=== PATIENT | male | born 1955 | race Caucasian/White ===

== ENCOUNTER 2018-01-11 09:23 | Day surgery (SDC) | payer OTHER ==
[~2018-01-11] VITALS: Ht 172.7 cm; Wt 144.2 kg
[~2018-01-11 09:23] MED LIST: ALBU90OI6 INH; ALLO100 PO; ANDROGEL75 GM TOP; ANORO ELLIPTA1 EACH INH; ASCO1ER PO; ASPI81CH PO; ATOR10 PO; ATOR40TA; BENZ100A PO; BUME2 PO; BUPR150ER PO; BUSP10; BUSP15 PO; CALC.25 PO; CALPHO600 PO; CARB50 PO; CLOP75; CLOP75 PO; COLC.6 PO; CYCL10 PO; CYMBALTA PO; Calcitriol0.25 MCG PO; Cilostazol50 MG PO; DIPH50 PO; DULO60 PO; ERGO400 PO; ERGO50000 PO; FERROUS SULFATE PO; FLUO10; FLUO20 PO; FLUT44OIA; FOLI1 PO; FURO40; FURO40 PO; Flonase 0.05% N16 GM; GABA100 PO; GUAI120S1 PO; HYDACE7.5L PO; HYDR10 PO; INSDETPEN SC; INSULANPEN SC; IPRAOI; IRON150C PO; ISOD40ER; ISOMON20 PO; LIRA0.6P INJ; LISI5 PO; LOSA50; METF500C PO; METF850; METO100ER; METO2.5 PO; METO25ER PO; METO50ER PO; NITR.4SL SL; NORTHERA100 MG PO; Novolog100 UNIT/1 SC; PIOG15; POTCHL20ER; POTCHL20ER PO; PRED20 PO; Percocet 5-3251 EACH PO; RANI150 PO; Robaxin500 MG PO; SALM50IP; SIMV80 PO; SPIR25; SPIR25 PO; Spironolactone25 MG PO; Stool Softener100 MG PO; TEMA15 PO; TETR250 PO; TOUJEO SOL300 UNIT/1 SQ; UBID10 PO; VICODIN 5-3001 EACH PO; Ventolin5 MG/1 ML INH; WARF4 PO; WARF5; WARF6 PO; Zithromax250 MG PO
[2018-01-11] MEDS ORDERED: SIMV5 (10:28)
== END 2018-01-11 22:39 | disposition home or self-care (01) ==
LOC: ORSCMMR 09:23 → ORD 11:00 → ORSCMMR 11:00
PROVIDERS: Internal Medicine Gastroenterology
PROC: 0D758ZZ Dilation of Esophagus, Via Natural or Artificial Opening Endoscopic (ICD-10-PCS; principal; 2018-01-11 11:00)
PROC: 0DB58ZX Excision of Esophagus, Via Natural or Artificial Opening Endoscopic, Diagnostic (ICD-10-PCS; principal; 2018-01-11 11:00)
DX: K22.70 Barrett's esophagus without dysplasia (principal); R13.10 Dysphagia, unspecified; I10 Essential (primary) hypertension; I50.9 Heart failure, unspecified; E11.9 Type 2 diabetes mellitus without complications; G47.33 Obstructive sleep apnea (adult) (pediatric); J44.9 Chronic obstructive pulmonary disease, unspecified; Z87.891 Personal history of nicotine dependence; E66.01 Morbid (severe) obesity due to excess calories; Z68.42 Body mass index [BMI] 45.0-49.9, adult; Z79.01 Long term (current) use of anticoagulants; Z79.82 Long term (current) use of aspirin; Z79.4 Long term (current) use of insulin; Z79.899 Other long term (current) drug therapy
CPT/HCPCS: 82947; 88305; J7120

== ENCOUNTER 2019-02-08 06:24 | Inpatient (IN) | payer OTHER ==
[~2019-02-08] VITALS: Ht 172.7 cm; Wt 141.5 kg
[~2019-02-08 06:24] MED LIST changes: +SIMV5
[2019-02-08 07:03] LABS: BASOPHILS ABSOLUTE AUTO 0.05 K/mm3 (0.00-0.23); BASOPHILS PERCENT AUTO 1 % (0-2); EOSINOPHILS ABSOLUTE AUTO 0.64 K/mm3 (0.00-0.68); EOSINOPHILS PERCENT AUTO 7 % (0-6); Hematocrit 38.5 % (37.0-53.0); Hemoglobin 11.8 g/dL (13.5-17.5); IMMATURE GRAN ABSOLUTE AUTO 0.06 K/mm3 (0.00-0.10); IMMATURE GRAN PERCENT AUTO 1 % (0-1); LYMPHOCYTES ABSOLUTE AUTO 1.51 K/mm3 (0.84-5.20); LYMPHOCYTES PERCENT AUTO 16 % (21-46); MONOCYTES ABSOLUTE AUTO 0.92 K/mm3 (0.16-1.47); MONOCYTES PERCENT AUTO 10 % (4-13); Mean Corpuscular HGB 31.1 pg (26.0-34.0); Mean Corpuscular HGB Conc 30.6 g/dL (31.5-36.5); Mean Corpuscular Volume 101 fL (80-100); Mean Platelet Volume 10.2 fL (9.1-12.4); NEUTROPHILS PERCENT AUTO 66 % (41-73); Platelet Count 290 K/mm3 (150-400); RDW Coefficient Variation 13.6 % (11.7-14.2); RDW Standard Deviation 51.1 fL (35.1-46.3); White Blood Cell Count 9.28 K/mm3 (4.00-11.30)
[2019-02-08 07:10] LABS: International Normalized Ratio 1.56; Prothrombin Time Results 15.9 Sec (9.7-11.5)
[2019-02-08 07:13] LABS: Alanine Aminotransfer (ALT/SGP 10 U/L (12-78); Albumin/Globulin Ratio 0.7 (0.8-1.8); Alk Phos 120 U/L (50-136); Anion Gap 8 mmol/L (6-16); Aspartate Aminotrans (AST/SGOT 15 U/L (12-37); Bilirubin, Total 0.5 mg/dL (0.1-1.0); Blood Urea Nitrogen 32 mg/dL (8-24); Bun/Creatinine Ratio 12.1 (12.0-20.0); CO2, Blood 30 mmol/L (21-32); Calcium, Blood 8.6 mg/dL (8.5-10.1); Chloride, Blood 101 mmol/L (98-108); Creatinine, Blood 2.64 mg/dL (0.60-1.20); Ethanol (Alcohol), Blood, Med <3 mg/dL; Globulin, Blood 4.1 g/dL (2.2-4.0); Glomerular Filtration Rate 26 (60-); Glucose, Blood 212 mg/dL (70-99); Potassium, Blood 4.5 mmol/L (3.5-5.5); Sodium, Blood 139 mmol/L (136-145); Total Protein, Blood 7.1 g/dL (6.4-8.2)
[2019-02-08] MEDS ORDERED: QUET100 PO (08:29)
[2019-02-08] MEDS ORDERED: FLUT1DIS5 INH (08:29)
[2019-02-08] MEDS ORDERED: LAMO100 PO (08:29)
[2019-02-08] MEDS ORDERED: LACO50TA2 PO (08:29)
[2019-02-08] MEDS ORDERED: DOCU100 PO (08:30)
[2019-02-08] MEDS ORDERED: OMEPRAZOLE20 MG PO ×2 (08:30→09:29)
[2019-02-08] MEDS ORDERED: CODEINE-GUAIFE120 ML (08:30)
[2019-02-08] MEDS ORDERED: DONE10 PO (08:30)
[2019-02-08] MEDS ORDERED: Hydrocortiso453.6 G3 TP (08:31)
[2019-02-08] MEDS ORDERED: ALBU90OI61 INH (08:31)
[2019-02-08] MEDS ORDERED: LOSA50 PO (08:31)
[2019-02-08] MEDS ORDERED: OXYB5 PO (08:31)
[2019-02-08] MEDS ORDERED: TAMS.4ER PO (08:32)
[2019-02-08] MEDS ORDERED: Triamcinolone A15 G3 (08:32)
[2019-02-08] MEDS ORDERED: CYAN500 PO (08:33)
[2019-02-08] MEDS ORDERED: Cymbalta60 MG PO (09:29)
[2019-02-08] MEDS ORDERED: Synthroid50 MCG PO (09:30)
[2019-02-08] MEDS ORDERED: OLAN5 PO (09:30)
[2019-02-08] MEDS ORDERED: Lipitor20 MG PO (09:31)
[2019-02-08] MEDS ORDERED: MONT10T PO (09:31)
[2019-02-08] MEDS ORDERED: Multivitamin1 EAC2 PO (09:31)
[2019-02-08] MEDS ORDERED: DIPH50 PO (09:32)
[2019-02-08] MEDS ORDERED: GLIP10ER PO (09:32)
[2019-02-08] MEDS ORDERED: GABA300 PO ×2 (09:33→13:16)
[2019-02-08] MEDS ORDERED: INSULANPEN (13:10)
[2019-02-08] MEDS ORDERED: LIRA0.6P (13:10)
[2019-02-08] MEDS ORDERED: NOVOLOG FL100 UNIT/1 (13:11)
[2019-02-08] MEDS ORDERED: METO25ER PO (13:12)
[2019-02-08] MEDS ORDERED: WARF2 PO (13:14)
[2019-02-08] MEDS ORDERED: WARF4 PO (13:14)
[2019-02-08] MEDS ORDERED: IRON150C PO (13:15)
[2019-02-08] MEDS ORDERED: ASPI81CH PO (13:15)
[2019-02-08] MEDS ORDERED: Allopurinol100 MG PO (13:15)
[2019-02-08] MEDS ORDERED: FOLI1 PO (13:16)
[2019-02-08] MEDS ORDERED: Isosorbide Mono30 MG PO (13:17)
[2019-02-08] MEDS ORDERED: POTCHL10ER PO (14:04)
[2019-02-08] MEDS ORDERED: Mucus Relief400 MG PO (14:04)
[2019-02-08] MEDS ORDERED: Zantac150 MG PO (14:05)
[2019-02-08] MEDS ORDERED: SPIR25 PO (14:05)
[2019-02-08] MEDS ORDERED: Vitamin D2000 UNIT PO (14:06)
[2019-02-08] MEDS ORDERED: Zocor20 MG PO (14:08)
[2019-02-08] MEDS ORDERED: DULO60 PO (14:08)
[2019-02-08] MEDS ORDERED: BUME2 PO (14:09)
[2019-02-08] MEDS ORDERED: TRAZ50 PO (14:09)
[2019-02-08] MEDS ORDERED: Nitrostat0.4 MG SL (14:10)
[2019-02-08] MEDS ORDERED: UBID10 PO (14:11)
[2019-02-08] MEDS ORDERED: NAPR220 PO (14:11)
[2019-02-08] MEDS ORDERED: PANT40 PO (14:12)
[2019-02-08] MEDS ORDERED: Allergy Medicat25 MG PO (14:14)
[2019-02-08] MEDS ORDERED: GINKGO BILOBA30 MG PO (14:15)
--- NOTE | 2019-02-08 15:10 | NUR ---
PT LEFT FLOOR WITH RN TO GO TO THE OR FOR ANKLE FX REPAIR
--- NOTE | 2019-02-08 17:55 | NUR ---
SHIFT SUMMARY PT A&OX4, VSS, BACK TO ROOM AT 1730. S/P I&D CLOSED REDUCTION RLE, ELEVATED. DENIES PAIN AT THIS TIME. FRANCI PO, DENIES N&V. SISTER AT BEDSIDE. WCTM & TX PER EMAR UNTIL REPORT GIVEN TO ONCOMING JOSE LUIS RN.
[2019-02-08 22:00] LABS: Source, Urine Clean Catch
[2019-02-08 22:04] LABS: Bilirubin, Urine Neg (Neg); Blood, Urine 1+ (Neg); Glucose Qualitative, Urine 3+ (Neg); Ketones, Urine 1+ (Neg); Leukocyte Esterase, Urine 3+ (Neg); Nitrite, Urine Neg (Neg); Protein, Urine 2+ (Neg); Specific Gravity, Urine 1.015 (1.003-1.022); Urobilinogen, Urine NORM (Normal)
[2019-02-08 22:11] LABS: Appearance, Urine Hazy (Clear); Color, Urine Yellow (P-Yellow)
[2019-02-08 22:12] LABS: Bacteria Few /hpf; Red Blood Cells, Urine 0-2 /hpf (0-2); Squamous Epithelial Cells Not Seen /hpf (Few); White Blood Cells, Urine TNTC /hpf (0-5)
[2019-02-09 04:46] LABS: BASOPHILS ABSOLUTE AUTO 0.06 K/mm3 (0.00-0.23); BASOPHILS PERCENT AUTO 1 % (0-2); EOSINOPHILS ABSOLUTE AUTO 0.48 K/mm3 (0.00-0.68); EOSINOPHILS PERCENT AUTO 5 % (0-6); Hematocrit 34.6 % (37.0-53.0); IMMATURE GRAN ABSOLUTE AUTO 0.04 K/mm3 (0.00-0.10); IMMATURE GRAN PERCENT AUTO 0 % (0-1); LYMPHOCYTES ABSOLUTE AUTO 0.98 K/mm3 (0.84-5.20); LYMPHOCYTES PERCENT AUTO 10 % (21-46); MONOCYTES ABSOLUTE AUTO 1.03 K/mm3 (0.16-1.47); MONOCYTES PERCENT AUTO 11 % (4-13); Mean Corpuscular HGB 31.3 pg (26.0-34.0); Mean Corpuscular HGB Conc 31.8 g/dL (31.5-36.5); Mean Platelet Volume 10.3 fL (9.1-12.4); NEUTROPHILS ABSOLUTE AUTO 6.82 K/mm3 (1.96-9.15); NEUTROPHILS PERCENT AUTO 73 % (41-73); Platelet Count 252 K/mm3 (150-400); RDW Coefficient Variation 13.5 % (11.7-14.2); RDW Standard Deviation 48.5 fL (35.1-46.3); Red Blood Cell Count 3.52 M/mm3 (4.30-5.90); White Blood Cell Count 9.41 K/mm3 (4.00-11.30)
[2019-02-09 04:47] LABS: Mean Corpuscular Volume 98 fL (80-100)
[2019-02-09 05:02] LABS: International Normalized Ratio 1.22; Prothrombin Time Results 12.7 Sec (9.7-11.5)
[2019-02-09 05:13] LABS: Anion Gap 7 mmol/L (6-16); Blood Urea Nitrogen 30 mg/dL (8-24); Bun/Creatinine Ratio 11.6 (12.0-20.0); CO2, Blood 29 mmol/L (21-32); Calcium, Blood 8.4 mg/dL (8.5-10.1); Chloride, Blood 101 mmol/L (98-108); Creatinine, Blood 2.58 mg/dL (0.60-1.20); Glomerular Filtration Rate 27 (60-); Glucose, Blood 232 mg/dL (70-99); Potassium, Blood 4.4 mmol/L (3.5-5.5); Sodium, Blood 137 mmol/L (136-145); Vancomycin, Random 18.8 ug/mL
--- NOTE | 2019-02-09 05:46 | NUR ---
SHIFT SUMMARY: PT POD #1 OF I&D CLOSED REDUCTION TO RLE. SPLINT IN PLACE. EXTREMITY ELEVATED WITH ICE. CAP REFILL WNL. PT ABLE TO WIGGLE TOES. BASELINE NEUROPATHY IN BLE AND BUE. NON WB TO RLE. PT REPORTS HAVING ALL TEETH REMOVED 11 DAYS AGO AND C/O SOME GUM PAIN. GIVEN OXY PRN PER EMAR. USING URINAL TO VOID. SLEEPING MOST OF SHIFT. BIPAP IN PLACE.
--- NOTE | 2019-02-09 17:13 | NUR ---
SHIFT SUMMARY PT A&OX4, VSS, BIPAP & BIOX BEDSIDE. POD1 I&D CLOSED REDUCTION OPEN FX W/SHORT LEG SPLINT, LEG ELEVATED. PAIN MANAGED WITH 5 MG OXY. PHYSICAL THERAPY REP PT IS ABLE TO INDEP DANGLE BEDSIDE, NEEDS REMINDERS TO PAY ATTN TO FOOT, NWB. FRANCI PO, DENIES N&V. PLAN IS NPO MIDNIGHT FOR ANKLE REPAIR BY DR LOUISE ON SUNDAY. WCTM & TX PER EMAR UNTIL REPORT GIVEN TO ONCOMING JOSE LUIS RN.
--- NOTE | 2019-02-10 04:21 | NUR ---
SHIFT SUMMARY: PT POD #2 FOR I&D OF RIGHT ANKLE. SPLINT IN PLACE WITH LEG ELEVATED. CAP REFILL WNL. PT ABLE TO WIGGLE TOES. NON WB ON AFFECTED EXTREMITY. BASELINE NEUROPATHY TO BLE AND BUE. USING BIPAP T/O NIGHT. O2 SATS STABLE. PT HAS BEEN NPO SINCE MIDNIGHT FOR ADDITIONAL SURGERY LATER TODAY.
[2019-02-10 08:34] LABS: BASOPHILS ABSOLUTE AUTO 0.06 K/mm3 (0.00-0.23); BASOPHILS PERCENT AUTO 1 % (0-2); EOSINOPHILS ABSOLUTE AUTO 0.63 K/mm3 (0.00-0.68); EOSINOPHILS PERCENT AUTO 7 % (0-6); Hematocrit 33.6 % (37.0-53.0); Hemoglobin 10.3 g/dL (13.5-17.5); IMMATURE GRAN ABSOLUTE AUTO 0.08 K/mm3 (0.00-0.10); IMMATURE GRAN PERCENT AUTO 1 % (0-1); LYMPHOCYTES ABSOLUTE AUTO 1.16 K/mm3 (0.84-5.20); LYMPHOCYTES PERCENT AUTO 12 % (21-46); MONOCYTES ABSOLUTE AUTO 1.14 K/mm3 (0.16-1.47); MONOCYTES PERCENT AUTO 12 % (4-13); Mean Corpuscular HGB 30.9 pg (26.0-34.0); Mean Corpuscular HGB Conc 30.7 g/dL (31.5-36.5); Mean Platelet Volume 10.2 fL (9.1-12.4); NEUTROPHILS PERCENT AUTO 68 % (41-73); Platelet Count 236 K/mm3 (150-400); RDW Coefficient Variation 13.5 % (11.7-14.2); Red Blood Cell Count 3.33 M/mm3 (4.30-5.90); White Blood Cell Count 9.57 K/mm3 (4.00-11.30)
[2019-02-10 08:38] LABS: Mean Corpuscular Volume 101 fL (80-100)
[2019-02-10 08:49] LABS: International Normalized Ratio 1.17; Prothrombin Time Results 12.2 Sec (9.7-11.5)
[2019-02-10 08:58] LABS: Bun/Creatinine Ratio 13.2 (12.0-20.0); Calcium, Blood 8.7 mg/dL (8.5-10.1); Creatinine, Blood 2.66 mg/dL (0.60-1.20); Potassium, Blood 4.4 mmol/L (3.5-5.5)
[2019-02-10 09:15] LABS: Vancomycin, Trough 24.4 ug/mL (5.0-10.0)
--- NOTE | 2019-02-10 11:20 | NUR ---
PT TO DAY SURGERY VIA HOSPITAL BED.
--- NOTE | 2019-02-10 12:12 | NUR ---
History, Chart, Medications and Allergies reviewed before start of procedure. LUNGS SCATTERED WHEEZES, PT STATES HE HAS DEVELOPED COUGH SINCE HOSPITAL ADMIT. DR BEAL, ANESTHESIOLOGIST AWARE. PT VOIDED USING URINAL PRIOR TO GOING BACK TO OR.
--- NOTE | 2019-02-10 15:14 | NUR ---
POST-OP PT BACK TO ROOM FROM PACU; A&O X4 BUT DROWSY; DENIES PAIN; RLE ELEVATED; SISTER AT BESIDE, AND HOSPITALIST TO ROOM.
--- NOTE | 2019-02-10 18:17 | NUR ---
SHIFT SUMMARY A/O X4, ORIF OF R ANKLE TODAY, DRESSING AND LE WOUNDS ARE C/D/I. NUMBNESS IN BLE R/T DIABETIC NEUROPATHY, DENIES PAIN. 2 PERSON MAX ASSIT WITH REPOSITIONING. 2L NC POST OP. EATING, DRINKING, AND VOIDING.
[2019-02-10 20:06] LABS: Vancomycin, Random 21.5 ug/mL
--- NOTE | 2019-02-11 02:43 | NUR ---
PLACED ON BIPAP WITH BLEED IN O2 AT 2L. PER BIOX O2 SAT IS 90%, TOLERATING WELL. WILL CONTINUE TO MONITOR.
[2019-02-11 05:10] LABS: International Normalized Ratio 1.19; Prothrombin Time Results 12.4 Sec (9.7-11.5)
[2019-02-11 05:17] LABS: Vancomycin, Random 17.8 ug/mL
--- NOTE | 2019-02-11 06:24 | NUR ---
LYING IN SEMI FOWLERS WITH EYES OPEN. REMOVED HIMSELF FROM BIPAP AND TOOK 0600 MEDS WITHOUT ISSUE. DENIES FURTHER NEEDS AT THIS TIME. SAFETY MEASURES IN PLACE. WILL GIVE HAND OFF TO ONCOMING SHIFT USING SBAR.
[2019-02-11 12:35] LABS: Hematocrit 32.4 % (37.0-53.0)
--- NOTE | 2019-02-11 16:21 | NUR ---
DISCHARGE PT HAS DONE WELL TODAY. UP IN CHAIR, WORKED WITH THERAPY. TX TO SNF TODAY. REPORT CALLED TO JUAN.
== END 2019-02-11 16:58 | DRG 493 ==
LOC: ER 06:24 → SURS 08:20
PROVIDERS: Emergency Medicine; Podiatrist Foot & Ankle Surgery; ADMIT Hospitalist
PROC: 0SBF0ZZ Excision of Right Ankle Joint, Open Approach (ICD-10-PCS; 2019-02-08)
PROC: 0QSJXZZ Reposition Right Fibula, External Approach (ICD-10-PCS; 2019-02-08)
PROC: 0QSJ04Z Reposition Right Fibula with Internal Fixation Device, Open Approach (ICD-10-PCS; principal; 2019-02-10 12:00)
DX: S82.91 Unspecified fracture of right lower leg (principal); D68.59 Other primary thrombophilia; I50.22 Chronic systolic (congestive) heart failure; N18.4 Chronic kidney disease, stage 4 (severe); E11.40 Type 2 diabetes mellitus with diabetic neuropathy, unspecified; I48.91 Unspecified atrial fibrillation; F32.9 Major depressive disorder, single episode, unspecified; B37.9 Candidiasis, unspecified; Z79.4 Long term (current) use of insulin; W18.30XA Fall on same level, unspecified, initial encounter; F41.9 Anxiety disorder, unspecified; K21.9 Gastro-esophageal reflux disease without esophagitis; Z91.81 History of falling; Z95.810 Presence of automatic (implantable) cardiac defibrillator; Z87.891 Personal history of nicotine dependence
CPT/HCPCS: 12004; 27840; 36415; 73560-RT; 73590; 73600; 80048; 80053; 80202; 81001; 82947; 85014; 85018; 85025; 85610; 85730; 86850; 86900; 86901; 87077; 87086; 87186; 93005; 93010; 94762; 96365-59; 96367-59; 96375-59; 97110; 97162; 97166; 97530; 99285-25; C1713; G0480; J0690; J1650; J2250; J2370; J2405; J2704; J2765; J3010; J3370; J3430; J3480; J7050; J7120; Q0163

== ENCOUNTER 2019-02-14 21:14 | Inpatient (IN) | payer OTHER ==
[~2019-02-14] VITALS: Ht 172.7 cm; Wt 145.0 kg
[~2019-02-14 21:14] MED LIST changes: +ALBU90OI61 INH; +Allergy Medicat25 MG PO; +Allopurinol100 MG PO; +CODEINE-GUAIFE120 ML; +CYAN500 PO; +Cymbalta60 MG PO; +DOCU100 PO; +DONE10 PO; +FLUT1DIS5 INH; +GABA300 PO; +GINKGO BILOBA30 MG PO; +GLIP10ER PO; +Hydrocortiso453.6 G3 TP; +INSULANPEN; +Isosorbide Mono30 MG PO; +LACO50TA2 PO; +LAMO100 PO; +LIRA0.6P; +LOSA50 PO; +Lipitor20 MG PO; +MONT10T PO; +Mucus Relief400 MG PO; +Multivitamin1 EAC2 PO; +NAPR220 PO; +NOVOLOG FL100 UNIT/1; +Nitrostat0.4 MG SL; +OLAN5 PO; +OMEPRAZOLE20 MG PO; +OXYB5 PO; +PANT40 PO; +POTCHL10ER PO; +QUET100 PO; +Synthroid50 MCG PO; +TAMS.4ER PO; +TRAZ50 PO; +Triamcinolone A15 G3; +Vitamin D2000 UNIT PO; +WARF2 PO; +Zantac150 MG PO; +Zocor20 MG PO
[2019-02-14] MEDS ORDERED: EZFE 200200 MG (21:37)
[2019-02-14] MEDS ORDERED: Protonix40 MG PO (21:38)
[2019-02-14 22:29] LABS: BASOPHILS ABSOLUTE AUTO 0.04 K/mm3 (0.00-0.23); BASOPHILS PERCENT AUTO 1 % (0-2); EOSINOPHILS ABSOLUTE AUTO 0.65 K/mm3 (0.00-0.68); EOSINOPHILS PERCENT AUTO 8 % (0-6); Hematocrit 30.7 % (37.0-53.0); Hemoglobin 9.7 g/dL (13.5-17.5); IMMATURE GRAN ABSOLUTE AUTO 0.05 K/mm3 (0.00-0.10); IMMATURE GRAN PERCENT AUTO 1 % (0-1); LYMPHOCYTES ABSOLUTE AUTO 1.09 K/mm3 (0.84-5.20); LYMPHOCYTES PERCENT AUTO 13 % (21-46); MONOCYTES PERCENT AUTO 10 % (4-13); Mean Corpuscular HGB 31.2 pg (26.0-34.0); Mean Corpuscular HGB Conc 31.6 g/dL (31.5-36.5); Mean Corpuscular Volume 99 fL (80-100); Mean Platelet Volume 9.5 fL (9.1-12.4); NEUTROPHILS ABSOLUTE AUTO 5.49 K/mm3 (1.96-9.15); NEUTROPHILS PERCENT AUTO 68 % (41-73); Platelet Count 300 K/mm3 (150-400); RDW Coefficient Variation 13.6 % (11.7-14.2); RDW Standard Deviation 48.2 fL (35.1-46.3); Red Blood Cell Count 3.11 M/mm3 (4.30-5.90); White Blood Cell Count 8.12 K/mm3 (4.00-11.30)
[2019-02-14 22:47] LABS: Albumin, Blood 2.6 g/dL (3.4-5.0); Albumin/Globulin Ratio 0.6 (0.8-1.8); Bilirubin, Total 0.5 mg/dL (0.1-1.0); Bun/Creatinine Ratio 15.2 (12.0-20.0); Calcium, Blood 8.7 mg/dL (8.5-10.1); Creatinine, Blood 2.57 mg/dL (0.60-1.20); Globulin, Blood 4.6 g/dL (2.2-4.0); Potassium, Blood 3.7 mmol/L (3.5-5.5); Total Protein, Blood 7.2 g/dL (6.4-8.2)
--- NOTE | 2019-02-15 00:30 | NUR ---
RECEIVED HAND OFF FROM ER NURSE USING SBAR. TRANSPORTED TO ROOM 221 VIA STRETCHER WITH FULL STAFF ASSISTANCE, TOLERATED WELL. AAO X3, M[place], FOLLOWS ALL COMMANDS. ORIENTED TO ROOM, CALL SYSTEM, AND POC, VOICES UNDERSTANDING. ADMISSION ASSESSMENT IN PROGRESS. SAFETY MEASURES IN PLACE. WILL CONTINUE TO MONITOR.
--- NOTE | 2019-02-15 02:30 | NUR ---
0230: ASSUMED CARE OF PT THAT IS RESTING IN BED QUIETLY WITH CALL LIGHT IN REACH. LLE PROPPED ON PILLOW WITH ICE PACK AND FOOT OF BED ELEVATED.
[2019-02-15 09:39] LABS: International Normalized Ratio 1.47
--- NOTE | 2019-02-15 11:17 | NUR ---
LOW BLOOD GLUCOSE POC TESTING SHOWED LOW BLOOD GLUCOSE OF 41 AT APPROXIMATELY 0721 THIS AM. PT REPORTED FEELING TIRED AND LIKE HIS BLOOD GLUCOSE WAS LOW BUT REMAINED ALERT AND ORIENTED. DR. JEAN PRESENT DURING THIS TIME, ORDERED D50 TO BE ADMINISTERED. D50 INCREASED BLOOD GLUCOSE TO 118. IV FLUID ORDER CHANGED IN ORDER TO HELP MAINTAIN BLOOD GLUCOSE.
--- NOTE | 2019-02-15 11:35 | NUR ---
PT TAKEN TO DAY SURGERY AT 0833.
--- NOTE | 2019-02-15 15:56 | NUR ---
VTACH PT HAD AN 8 BEAT RUN OF VTACH AND A 6 BEAT RUN OF VTACH. PT WAS ASYMPTOMATIC WITH BOTH AND VSS. HR OF 106, PT IN AFIB PER CAT DOG OR OTHER PET GROOMER. DR. JENA NOTIFIED.
--- NOTE | 2019-02-15 18:09 | NUR ---
VTACH PT CONTINUES TO HAVE SHORT EPISODES OF VTACH 6-8 BEATS. PT HAS BEEN ASYMPTOMATIC WITH MOST RECENT EPISODES. VSS. WILL MONITOR UNTIL TRANSFER TO PCU.
--- NOTE | 2019-02-15 18:29 | NUR ---
TRANSFER PT TRANSFERRED TO PCU AT 1830. PT ALERT AND ORIENTED AT TIME OF TRANFER. REPORT WAS GIVEN TO FAHAD EARLY.
[2019-02-16 04:35] LABS: BASOPHILS ABSOLUTE AUTO 0.01 K/mm3 (0.00-0.23); BASOPHILS PERCENT AUTO 0 % (0-2); EOSINOPHILS PERCENT AUTO 0 % (0-6); Hemoglobin 8.7 g/dL (13.5-17.5); IMMATURE GRAN ABSOLUTE AUTO 0.09 K/mm3 (0.00-0.10); IMMATURE GRAN PERCENT AUTO 1 % (0-1); LYMPHOCYTES PERCENT AUTO 5 % (21-46); MONOCYTES ABSOLUTE AUTO 0.72 K/mm3 (0.16-1.47); MONOCYTES PERCENT AUTO 7 % (4-13); Mean Corpuscular HGB 31.2 pg (26.0-34.0); Mean Corpuscular HGB Conc 31.1 g/dL (31.5-36.5); Mean Corpuscular Volume 100 fL (80-100); NEUTROPHILS PERCENT AUTO 87 % (41-73); Platelet Count 283 K/mm3 (150-400); RDW Coefficient Variation 13.5 % (11.7-14.2); Red Blood Cell Count 2.79 M/mm3 (4.30-5.90); White Blood Cell Count 10.52 K/mm3 (4.00-11.30)
--- NOTE | 2019-02-16 04:54 | NUR ---
POD 1 S/P ORIF R ANKLE. PT DID HAVE SEVERAL EPISOSES OF V-TACH; MAX RUN OF 7 BEATS; PT ASYMPTOMATIC. HR AFIB PER TELE MONITOR, PT DENIED CP/PRESSURE/SOB. O2 TITRATED DOWN TO 1LNC THIS AM, BIPAP ON WHILE SLEEPING. RLE ELEVATED, DRESSING CDI, CAP REFILL WNL, PT REP N/T AT BASELINE. PAIN MGD PER EMAR W/REP RELIEF. PT FRANCI REG PO, NO C/O N/V. IV S/L PER ORDERS. PT USING URINAL W/ASSISTANCE. PT REPOSITIONED FREQUENTLY T/O NIGHT, IS USING CALL LIGHT FOR ASSISTANCE, WILL CONT TO MONITOR UNTIL REP GIVEN TO ONCOMING RN.
[2019-02-16 04:58] LABS: Albumin, Blood 2.3 g/dL (3.4-5.0); Albumin/Globulin Ratio 0.5 (0.8-1.8); Bilirubin, Total 0.5 mg/dL (0.1-1.0); Bun/Creatinine Ratio 17.5 (12.0-20.0); Calcium, Blood 8.1 mg/dL (8.5-10.1); Creatinine, Blood 2.28 mg/dL (0.60-1.20); Globulin, Blood 4.4 g/dL (2.2-4.0); Potassium, Blood 4.2 mmol/L (3.5-5.5); Total Protein, Blood 6.7 g/dL (6.4-8.2)
[2019-02-16 05:03] LABS: Vancomycin, Trough 17.8 ug/mL (5.0-10.0)
[2019-02-16 05:05] LABS: Thyroid Stimulating Hormone 0.78 uIU/mL (0.360-4.800)
--- NOTE | 2019-02-16 12:08 | NUR ---
ECHOCARDIOGRAM COMPLETE
--- NOTE | 2019-02-16 18:12 | NUR ---
SHIFT SUMMARY PT ALERT AND ORIENTED. VS STABLE. O2 SATS >90% ON 2L NC. PT COMPLAINED OF PAIN TO RIGHT LEG THAT WAS RELIEVED WITH MEDICATION ADMINISTRATION. PT REPOSITIONED Q2H. PT ABLE TO WORK WITH PHYSICAL THERAPY TODAY. PT HAD SHORT RUN OF VTACH TWICE THIS SHIFT, BUT WAS ASYMPTOMATIC. WILL CONTINUE TO MONITOR AND REPORT TO ONCOMING RN. CALL LIGHT IN REACH.
[2019-02-16 20:18] LABS: International Normalized Ratio 1.41; Prothrombin Time Results 14.5 Sec (9.7-11.5)
--- NOTE | 2019-02-17 04:00 | NUR ---
ASSUMED CARE AT 1930 LAST NOC,.GOOD SPIRTS AND FAIRLY COMFORTABLE. ENC TO DO ADLS FOR SELF AND REPOSITION SELF . VERY LITTLE TO NO EFFORT. ENC TO T/C/ DB. AND INSTRUCTED ON I.S. POOR EFFORT BUT WILL CONT TO REMIND CONSTANTLY .RT LEG JACINTO WRAP DSG AND FIRM SPLINT BENEATH , DRY AND INTACT. CIRC CHECK WNL AT RT TOES AND ABLE TO MOVE TOES TO COMMAND. ALWAYS ELEVATED AND REPOSITIONED PER Q2-3HR SCHEDULE. AND HS SNACK TAKEN W/ INSULIN RE ESTABLISHED . GOOD APPETITE. FLUIDS ENC. PAIN RELIEF AND OFF TO SLEEP POST MEDS EVEN THOUGH HE COMPLAINED THAT HE COULD NOT LYE ON LT SIDE. SKIN CARE W/ CLEANSING AND UNGT AND POWDERS. SEEMS HE MAY BE SPILLING URINAL PARTIALLY. [facility]ENNA [facility].
[2019-02-17 04:22] LABS: BASOPHILS ABSOLUTE AUTO 0.03 K/mm3 (0.00-0.23); BASOPHILS PERCENT AUTO 0 % (0-2); EOSINOPHILS PERCENT AUTO 4 % (0-6); Hematocrit 26.3 % (37.0-53.0); Hemoglobin 8.2 g/dL (13.5-17.5); IMMATURE GRAN ABSOLUTE AUTO 0.13 K/mm3 (0.00-0.10); IMMATURE GRAN PERCENT AUTO 1 % (0-1); LYMPHOCYTES ABSOLUTE AUTO 1.12 K/mm3 (0.84-5.20); LYMPHOCYTES PERCENT AUTO 12 % (21-46); MONOCYTES ABSOLUTE AUTO 0.79 K/mm3 (0.16-1.47); MONOCYTES PERCENT AUTO 9 % (4-13); Mean Corpuscular HGB 31.7 pg (26.0-34.0); Mean Corpuscular HGB Conc 31.2 g/dL (31.5-36.5); Mean Corpuscular Volume 102 fL (80-100); Mean Platelet Volume 9.5 fL (9.1-12.4); NEUTROPHILS ABSOLUTE AUTO 6.64 K/mm3 (1.96-9.15); NEUTROPHILS PERCENT AUTO 73 % (41-73); Platelet Count 264 K/mm3 (150-400); RDW Standard Deviation 50.4 fL (35.1-46.3); Red Blood Cell Count 2.59 M/mm3 (4.30-5.90); White Blood Cell Count 9.11 K/mm3 (4.00-11.30)
[2019-02-17 04:38] LABS: International Normalized Ratio 1.37; Prothrombin Time Results 14.1 Sec (9.7-11.5)
[2019-02-17 04:44] LABS: Alanine Aminotransfer (ALT/SGP 13 U/L (12-78); Albumin, Blood 2.3 g/dL (3.4-5.0); Albumin/Globulin Ratio 0.6 (0.8-1.8); Alk Phos 82 U/L (50-136); Anion Gap 6 mmol/L (6-16); Aspartate Aminotrans (AST/SGOT 16 U/L (12-37); Bilirubin, Total 0.3 mg/dL (0.1-1.0); Blood Urea Nitrogen 46 mg/dL (8-24); Bun/Creatinine Ratio 19.7 (12.0-20.0); CO2, Blood 34 mmol/L (21-32); Chloride, Blood 94 mmol/L (98-108); Creatinine, Blood 2.33 mg/dL (0.60-1.20); Globulin, Blood 4.1 g/dL (2.2-4.0); Glomerular Filtration Rate 30 (60-); Glucose, Blood 183 mg/dL (70-99); Potassium, Blood 3.8 mmol/L (3.5-5.5); Sodium, Blood 134 mmol/L (136-145); Total Protein, Blood 6.4 g/dL (6.4-8.2)
--- NOTE | 2019-02-17 06:11 | NUR ---
SHIFT SUMMARY. NO ACUTE CHANGE FROM ABOVE. SLEPT WELL ALL NOC. NO V TACH SEEM THIS SHIFT. SOFT FOOD FO RHS SNACK AND NO REPORT OF MOUTH PAIN W/ THIS. PO MED FOR GENERAL PAIN/ W/ GOOD RESULTS.
[2019-02-17 09:33] LABS: Vancomycin, Random 22.1 ug/mL
--- NOTE | 2019-02-17 14:01 | NUR ---
02/17/19 1401 Lorene Truong VERIFICATIONS: EDIT CHART.
--- NOTE | 2019-02-17 19:36 | NUR ---
HE HAS RECEIVED OXYCODONE X1 TODAY FOR PAIN IN HIS R ANKLE. HE EATS AND DRINKS WELL. HE TRIED TO HAVE A BM ON THE BEDPAN AT END OF SHIFT BUT WAS UNSUCCESSFUL. HE STOOD WITH PT TODAY NWB ON RIGHT. UNABLE TO TAKE A STEP. FOR NURSING, HE REMAINS A LIFT TO GET OOB. HE HAS BEEN TURNED TODAY THROUGHOUT THE DAY. HE MOVES WELL IN BED. HE GETS HIS I.S. UPT TO 1750. CBG'S WARRANTED SOME SS INSULIN AT EACH MEAL.
[2019-02-18 05:02] LABS: BASOPHILS ABSOLUTE AUTO 0.04 K/mm3 (0.00-0.23); BASOPHILS PERCENT AUTO 0 % (0-2); EOSINOPHILS ABSOLUTE AUTO 0.68 K/mm3 (0.00-0.68); EOSINOPHILS PERCENT AUTO 6 % (0-6); Hemoglobin 8.4 g/dL (13.5-17.5); IMMATURE GRAN PERCENT AUTO 1 % (0-1); LYMPHOCYTES ABSOLUTE AUTO 1.25 K/mm3 (0.84-5.20); LYMPHOCYTES PERCENT AUTO 12 % (21-46); MONOCYTES ABSOLUTE AUTO 0.96 K/mm3 (0.16-1.47); MONOCYTES PERCENT AUTO 9 % (4-13); Mean Corpuscular HGB 31.2 pg (26.0-34.0); Mean Corpuscular HGB Conc 31.1 g/dL (31.5-36.5); Mean Corpuscular Volume 100 fL (80-100); Mean Platelet Volume 9.6 fL (9.1-12.4); NEUTROPHILS ABSOLUTE AUTO 7.74 K/mm3 (1.96-9.15); NEUTROPHILS PERCENT AUTO 72 % (41-73); Platelet Count 307 K/mm3 (150-400); RDW Coefficient Variation 14.5 % (11.7-14.2); RDW Standard Deviation 51.3 fL (35.1-46.3); Red Blood Cell Count 2.69 M/mm3 (4.30-5.90); White Blood Cell Count 10.77 K/mm3 (4.00-11.30)
--- NOTE | 2019-02-18 05:09 | NUR ---
SHIFT SUMMARY PT A&O X4, PLEASANT AND COOPERATIVE. PT LUNG SOUNDS DIM T/O. SPO2 > 90% ON 2L NC OR BIPAP. MONITOR SHOWS AFIB, HR 80-90'S. VSS. NO EVENTS OVER NIGHT. NO C/O PAIN THIS SHIFT. BLE ELEVATED W/ PILLOWS. R ANKLE WRAPPED. WILL CONTINUE TO MONITOR AND PROVIDE CARE UNTIL REPORT OFF TO DAY SHIFT RN.
[2019-02-18 05:17] LABS: International Normalized Ratio 1.48; Prothrombin Time Results 15.1 Sec (9.7-11.5)
[2019-02-18 05:27] LABS: Albumin, Blood 2.5 g/dL (3.4-5.0); Anion Gap 5 mmol/L (6-16); Blood Urea Nitrogen 51 mg/dL (8-24); Bun/Creatinine Ratio 20.6 (12.0-20.0); CO2, Blood 35 mmol/L (21-32); Calcium, Blood 8.8 mg/dL (8.5-10.1); Chloride, Blood 94 mmol/L (98-108); Creatinine, Blood 2.47 mg/dL (0.60-1.20); Glomerular Filtration Rate 28 (60-); Glucose, Blood 118 mg/dL (70-99); Potassium, Blood 3.8 mmol/L (3.5-5.5); Sodium, Blood 134 mmol/L (136-145); Vancomycin, Random 17.8 ug/mL
--- NOTE | 2019-02-18 07:30 | NUR ---
AM ASSESSMENT: Pt resting in bed. Repositioned with min assistance. LS diminished. HR irregular, tele shows afib in the 80's. BT positive. Pt morbid obese with large pannus. Multiple bruises and scabs over extrimeties. RLE with Large hard dressing and dyllan wrap over top. PT states that he is having 4/10 pain in his leg. Will medicate per orders. Pt states that he is really tired and that he has not slept much. Denies other needs. Call light in reach. Will monitor.
--- NOTE | 2019-02-18 09:50 | NUR ---
transfer to 218: Pt was transfered via recliner chair to room 218. Bedside report was given. Pt was a 2 person min assist to recliner chair with walker and gait belt. Pt NWB to R Leg and has some balance difficulties with this. Stable at time of transfer.
== END 2019-02-18 15:59 | DRG 493 ==
LOC: ER 21:14 → PCU 22:41 → SURS 22:41 → PCU 02-15 00:02 → SURS 02-15 00:27 → PCU 02-15 18:26 → SURS 02-18 09:48
PROVIDERS: Emergency Medicine; Family Medicine; Orthopaedic Surgery; ADMIT Internal Medicine
PROC: 0QSJ04Z Reposition Right Fibula with Internal Fixation Device, Open Approach (ICD-10-PCS; principal; 2019-02-15 09:45)
DX: T84.116A Breakdown (mechanical) of internal fixation device of bone of right lower leg, initial encounter (principal); N18.4 Chronic kidney disease, stage 4 (severe); I42.9 Cardiomyopathy, unspecified; I13.0 Hypertensive heart and chronic kidney disease with heart failure and stage 1 through stage 4 chronic kidney disease, or unspecified chronic kidney disease; I50.22 Chronic systolic (congestive) heart failure; Z68.43 Body mass index [BMI] 50.0-59.9, adult; M96.671 Fracture of tibia or fibula following insertion of orthopedic implant, joint prosthesis, or bone plate, right leg; W19.XXXA Unspecified fall, initial encounter; E11.22 Type 2 diabetes mellitus with diabetic chronic kidney disease; Z79.4 Long term (current) use of insulin; Z53.1 Procedure and treatment not carried out because of patient's decision for reasons of belief and group pressure; G47.33 Obstructive sleep apnea (adult) (pediatric); D63.1 Anemia in chronic kidney disease; I25.10 Atherosclerotic heart disease of native coronary artery without angina pectoris; Z95.810 Presence of automatic (implantable) cardiac defibrillator; Z95.5 Presence of coronary angioplasty implant and graft; I48.2 Chronic atrial fibrillation; Z79.82 Long term (current) use of aspirin; E66.01 Morbid (severe) obesity due to excess calories; M41.9 Scoliosis, unspecified; E11.59 Type 2 diabetes mellitus with other circulatory complications
CPT/HCPCS: 27788; 36415; 73600; 80053; 80069; 80202; 82947; 83880; 84443; 84484; 85025; 85610; 85730; 93005; 93010; 93306; 94640; 94660; 94762; 96365-59; 97110; 97161; 97166; 97530; 99285-25; C1713; J1100; J1650; J1956; J2370; J2405; J2704; J3010; J3370; J7030; J7120; Q0163

== ENCOUNTER 2019-03-03 15:31 | Inpatient (IN) | payer OTHER ==
[~2019-03-03] VITALS: Ht 172.7 cm; Wt 137.7 kg
[~2019-03-03 15:31] MED LIST changes: +Aspirin EC81 MG PO; +Chest Congesti400 MG PO; +Co Q-10100 MG PO; +EZFE 200200 MG; +Ferrous Sulfat325 M2 PO; -LIRA0.6P; +LIRA0.6P SC; -Mucus Relief400 MG PO; -NOVOLOG FL100 UNIT/1; +NOVOLOG FL100 UNIT/1 SC; +Protonix40 MG PO
[2019-03-03 16:33] LABS: International Normalized Ratio 1.66; Prothrombin Time Results 16.8 Sec (9.7-11.5)
[2019-03-03] MEDS ORDERED: OXYC5 PO (17:20)
[2019-03-03] MEDS ORDERED: DOCU100 PO (18:32)
[2019-03-03] MEDS ORDERED: METO5 PO (18:32)
[2019-03-03] MEDS ORDERED: Buspirone HCl7.5 MG PO (18:33)
[2019-03-04 05:15] LABS: International Normalized Ratio 1.63; Prothrombin Time Results 16.5 Sec (9.7-11.5)
[2019-03-04 05:29] LABS: Bun/Creatinine Ratio 18.5 (12.0-20.0); Calcium, Blood 9.2 mg/dL (8.5-10.1); Creatinine, Blood 2.05 mg/dL (0.60-1.20); Potassium, Blood 4.1 mmol/L (3.5-5.5)
--- NOTE | 2019-03-04 05:48 | NUR ---
SHIFT SUMMARY: PT ADMITTED FOR POSTOP INFECTION OF RECENT SURGERY TO RIGHT ANKLE. RIGHT ANKLE IS RED AND SWOLLEN WITH CRUSTY BLACK DRAINAGE TO INCICION SITE. INCISION CLOSED WITH SUTURES. PAIN MANAGED WITH 5MG OF OXY PER EMAR. PT REPORTS MINIMAL SENSATION TO BLE D/T NEUROPATHY. PT ALSO HAS NEUROPATHY TO BILAT HANDS AND IS UNABLE TO DO MOST ADL'S. PT NEEDS ASSISTANCE WITH URINAL; VOIDING WELL. BEDFAST AT THIS TIME. ABLE TO REPOSITION SELF IN BED. USING BIPAP T/O NIGHT.
--- NOTE | 2019-03-04 10:27 | NUR ---
new iv to left bicep. 20g started. 22 to right fa removed. dressing placed.
--- NOTE | 2019-03-04 14:18 | NUR ---
DR AVALOS TO ROOM FOR RESPLINTING, PLAN TO START PO ABX AND GET PT BACK TO SNF.
--- NOTE | 2019-03-04 17:48 | NUR ---
SHIFT SUMMARY ORTHO CONSULT COMPLETED, SPLINT SET BY . JACINTO WRAP C/D/I. STATES PAIN AT A TOLERABLE LEVEL T/O SHIFT. PLANS TO RETURN TO [facility] TOMORROW.
--- NOTE | 2019-03-05 00:26 | NUR ---
0022: PT REQUEST RN HELP WITH CPAP APPLICATION SO THAT HE MAY GO TO SLEEP. APPLIED TO PT SATISFACTION AND COMFORT AND LIGHTS TURNED OFF; CALL LIGHT IN REACH.
[2019-03-05 04:52] LABS: Albumin, Blood 2.4 g/dL (3.4-5.0); Anion Gap 8 mmol/L (6-16); Blood Urea Nitrogen 37 mg/dL (8-24); Bun/Creatinine Ratio 16.8 (12.0-20.0); CO2, Blood 31 mmol/L (21-32); Calcium, Blood 8.9 mg/dL (8.5-10.1); Chloride, Blood 101 mmol/L (98-108); Glomerular Filtration Rate 32 (60-); Glucose, Blood 148 mg/dL (70-99); Phosphorus, Blood 3.5 mg/dL (2.5-4.9); Potassium, Blood 4.3 mmol/L (3.5-5.5); Sodium, Blood 140 mmol/L (136-145)
[2019-03-05 04:54] LABS: BASOPHILS ABSOLUTE AUTO 0.03 K/mm3 (0.00-0.23); BASOPHILS PERCENT AUTO 0 % (0-2); EOSINOPHILS ABSOLUTE AUTO 0.85 K/mm3 (0.00-0.68); EOSINOPHILS PERCENT AUTO 12 % (0-6); Hematocrit 29.2 % (37.0-53.0); Hemoglobin 8.8 g/dL (13.5-17.5); IMMATURE GRAN ABSOLUTE AUTO 0.05 K/mm3 (0.00-0.10); IMMATURE GRAN PERCENT AUTO 1 % (0-1); LYMPHOCYTES ABSOLUTE AUTO 1.15 K/mm3 (0.84-5.20); LYMPHOCYTES PERCENT AUTO 16 % (21-46); MONOCYTES ABSOLUTE AUTO 0.84 K/mm3 (0.16-1.47); MONOCYTES PERCENT AUTO 11 % (4-13); Mean Corpuscular HGB 30.6 pg (26.0-34.0); Mean Corpuscular HGB Conc 30.1 g/dL (31.5-36.5); Mean Corpuscular Volume 101 fL (80-100); Mean Platelet Volume 9.1 fL (9.1-12.4); NEUTROPHILS ABSOLUTE AUTO 4.48 K/mm3 (1.96-9.15); NEUTROPHILS PERCENT AUTO 61 % (41-73); Platelet Count 461 K/mm3 (150-400); RDW Coefficient Variation 14.6 % (11.7-14.2); RDW Standard Deviation 53.9 fL (35.1-46.3); Red Blood Cell Count 2.88 M/mm3 (4.30-5.90)
[2019-03-05 05:07] LABS: International Normalized Ratio 1.7; Prothrombin Time Results 17.2 Sec (9.7-11.5)
--- NOTE | 2019-03-05 07:18 | NUR ---
SUMMARY: ADMIT DAY 3 RIGHT ANKLE SURGICAL SITE INFECTION BY HOSPITALIST AND DR. AVALOS. VSS, AFEBRILE, HS CBG GIVEN 2 UNITS COVERAGE. PAIN WELL CONTROLLED AND SEVERE NEUROPATHY TOLERABLE LEVEL. NO ACUTE CHANGES THIS SHIFT. ANTICIPATE RETURN TO [facility] LATER THIS DAY.
--- NOTE | 2019-03-05 16:11 | NUR ---
REPORT GIVEN TO SYD HERRERA RN. IV DC'D. PT DRESSED WITH ALL PERSONAL BELONGINGS WAITING FOR [facility] TRANSPORTATION.
== END 2019-03-05 16:30 | DRG 560 ==
LOC: ER 15:31 → SURS 18:08
PROVIDERS: Emergency Medicine; Internal Medicine; ADMIT Internal Medicine
DX: T84.59XA Infection and inflammatory reaction due to other internal joint prosthesis, initial encounter (principal); I50.22 Chronic systolic (congestive) heart failure; I42.9 Cardiomyopathy, unspecified; Z68.42 Body mass index [BMI] 45.0-49.9, adult; D68.9 Coagulation defect, unspecified; N18.4 Chronic kidney disease, stage 4 (severe); E11.40 Type 2 diabetes mellitus with diabetic neuropathy, unspecified; E66.01 Morbid (severe) obesity due to excess calories; I48.2 Chronic atrial fibrillation; Z79.4 Long term (current) use of insulin; G47.33 Obstructive sleep apnea (adult) (pediatric); Z79.01 Long term (current) use of anticoagulants; S82.843A Displaced bimalleolar fracture of unspecified lower leg, initial encounter for closed fracture; I25.10 Atherosclerotic heart disease of native coronary artery without angina pectoris; I48.91 Unspecified atrial fibrillation; Z87.891 Personal history of nicotine dependence; J44.9 Chronic obstructive pulmonary disease, unspecified; Z95.5 Presence of coronary angioplasty implant and graft; Z95.810 Presence of automatic (implantable) cardiac defibrillator; D63.1 Anemia in chronic kidney disease; E11.22 Type 2 diabetes mellitus with diabetic chronic kidney disease
CPT/HCPCS: 36415; 73610; 73700; 80048; 80069; 82947; 85025; 85610; 85651; 86140; 93922; 94640; 94660; 94762; 96365; 97162; 97530; 99284-25; J1956; J3370; J7050; Q0163

== ENCOUNTER 2019-04-08 00:11 | Emergency (ER) | payer OTHER ==
[~2019-04-08] VITALS: Ht 180.3 cm; Wt 113.4 kg
[~2019-04-08 00:11] MED LIST changes: +Buspirone HCl7.5 MG PO; +METO5 PO; +OXYC5 PO
[2019-04-08 02:56] LABS: Alanine Aminotransfer (ALT/SGP 10 U/L (12-78); Albumin, Blood 3.1 g/dL (3.4-5.0); Albumin/Globulin Ratio 0.7 (0.8-1.8); Alk Phos 90 U/L (50-136); Anion Gap 7 mmol/L (6-16); Aspartate Aminotrans (AST/SGOT 13 U/L (12-37); Bilirubin, Total 0.4 mg/dL (0.1-1.0); Blood Urea Nitrogen 39 mg/dL (8-24); Bun/Creatinine Ratio 17.5 (12.0-20.0); CO2, Blood 34 mmol/L (21-32); Calcium, Blood 8.9 mg/dL (8.5-10.1); Chloride, Blood 98 mmol/L (98-108); Creatinine, Blood 2.23 mg/dL (0.60-1.20); Globulin, Blood 4.5 g/dL (2.2-4.0); Glomerular Filtration Rate 30 (60-); Glucose, Blood 107 mg/dL (70-99); Potassium, Blood 3.1 mmol/L (3.5-5.5); Sodium, Blood 139 mmol/L (136-145); Total Protein, Blood 7.6 g/dL (6.4-8.2); Troponin I <0.015 ng/mL (0.000-0.040)
[2019-04-08 03:16] LABS: BASOPHILS ABSOLUTE AUTO 0.04 K/mm3 (0.00-0.23); BASOPHILS PERCENT AUTO 0 % (0-2); EOSINOPHILS ABSOLUTE AUTO 0.35 K/mm3 (0.00-0.68); EOSINOPHILS PERCENT AUTO 4 % (0-6); Hematocrit 33.6 % (37.0-53.0); Hemoglobin 10.4 g/dL (13.5-17.5); IMMATURE GRAN ABSOLUTE AUTO 0.03 K/mm3 (0.00-0.10); IMMATURE GRAN PERCENT AUTO 0 % (0-1); LYMPHOCYTES ABSOLUTE AUTO 1.41 K/mm3 (0.84-5.20); LYMPHOCYTES PERCENT AUTO 15 % (21-46); MONOCYTES ABSOLUTE AUTO 0.69 K/mm3 (0.16-1.47); MONOCYTES PERCENT AUTO 7 % (4-13); Mean Corpuscular Volume 97 fL (80-100); NEUTROPHILS ABSOLUTE AUTO 6.95 K/mm3 (1.96-9.15); NEUTROPHILS PERCENT AUTO 73 % (41-73); Platelet Count 310 K/mm3 (150-400); RDW Coefficient Variation 15.2 % (11.7-14.2); RDW Standard Deviation 53.1 fL (35.1-46.3); Red Blood Cell Count 3.47 M/mm3 (4.30-5.90); White Blood Cell Count 9.47 K/mm3 (4.00-11.30)
== END 2019-04-08 12:22 | disposition home or self-care (01) ==
LOC: ER 00:11
PROVIDERS: Emergency Medicine
DX: R07.9 Chest pain, unspecified (principal); R60.0 Localized edema; Z91.040 Latex allergy status; Z88.1 Allergy status to other antibiotic agents; Z79.899 Other long term (current) drug therapy; Z79.4 Long term (current) use of insulin; Z79.01 Long term (current) use of anticoagulants; Z79.82 Long term (current) use of aspirin; E11.9 Type 2 diabetes mellitus without complications; I50.9 Heart failure, unspecified; J44.9 Chronic obstructive pulmonary disease, unspecified; Z87.891 Personal history of nicotine dependence
CPT/HCPCS: 71046; 80053; 83690; 84484; 85025; 93005; 93010; 96374; 99285-25; J2270

== ENCOUNTER 2019-04-10 11:49 | Day surgery (SDC) | payer OTHER | END 2019-04-10 23:04 | disposition home or self-care (01) | LOC: WOUND 11:49 → EDSTATUS 14:58 → WOUND 23:04 | PROC: 0HDKXZZ Extraction of Right Lower Leg Skin, External Approach (ICD-10-PCS; principal; 2019-04-10) | DX: E11.622 Type 2 diabetes mellitus with other skin ulcer (principal); L97.312 Non-pressure chronic ulcer of right ankle with fat layer exposed; S82.841E Displaced bimalleolar fracture of right lower leg, subsequent encounter for open fracture type I or II with routine healing; W19.XXXD Unspecified fall, subsequent encounter; E11.42 Type 2 diabetes mellitus with diabetic polyneuropathy; E11.22 Type 2 diabetes mellitus with diabetic chronic kidney disease; N18.6 End stage renal disease; E78.5 Hyperlipidemia, unspecified; G47.33 Obstructive sleep apnea (adult) (pediatric); I25.10 Atherosclerotic heart disease of native coronary artery without angina pectoris; I42.9 Cardiomyopathy, unspecified; J44.9 Chronic obstructive pulmonary disease, unspecified; G47.30 Sleep apnea, unspecified; E11.51 Type 2 diabetes mellitus with diabetic peripheral angiopathy without gangrene; I73.00 Raynaud's syndrome without gangrene; M10.9 Gout, unspecified; D68.59 Other primary thrombophilia; Z95.810 Presence of automatic (implantable) cardiac defibrillator; Z79.4 Long term (current) use of insulin; Z90.49 Acquired absence of other specified parts of digestive tract; Z87.891 Personal history of nicotine dependence; Z88.1 Allergy status to other antibiotic agents; Z91.040 Latex allergy status | CPT/HCPCS: 87070; 87071; 87075; 87077; 87186; 87205 ==

== ENCOUNTER 2019-04-16 12:30 | Day surgery (SDC) | payer OTHER | END 2019-04-16 23:36 | disposition home or self-care (01) | LOC: WOUND 12:30 | DX: E11.622 Type 2 diabetes mellitus with other skin ulcer (principal); L97.312 Non-pressure chronic ulcer of right ankle with fat layer exposed; E11.51 Type 2 diabetes mellitus with diabetic peripheral angiopathy without gangrene; I73.9 Peripheral vascular disease, unspecified; E11.40 Type 2 diabetes mellitus with diabetic neuropathy, unspecified; E11.22 Type 2 diabetes mellitus with diabetic chronic kidney disease; N18.6 End stage renal disease; D63.1 Anemia in chronic kidney disease; I25.119 Atherosclerotic heart disease of native coronary artery with unspecified angina pectoris; I50.9 Heart failure, unspecified; J44.9 Chronic obstructive pulmonary disease, unspecified; G47.30 Sleep apnea, unspecified ==

== ENCOUNTER 2019-04-30 00:26 | Day surgery (SDC) | payer OTHER | END 2019-04-30 22:45 | disposition home or self-care (01) | LOC: WOUND 00:26 | DX: E11.622 Type 2 diabetes mellitus with other skin ulcer (principal); L97.318 Non-pressure chronic ulcer of right ankle with other specified severity; I13.2 Hypertensive heart and chronic kidney disease with heart failure and with stage 5 chronic kidney disease, or end stage renal disease; E11.22 Type 2 diabetes mellitus with diabetic chronic kidney disease; N18.6 End stage renal disease; I50.9 Heart failure, unspecified; D63.1 Anemia in chronic kidney disease; E11.42 Type 2 diabetes mellitus with diabetic polyneuropathy; E11.51 Type 2 diabetes mellitus with diabetic peripheral angiopathy without gangrene; I73.9 Peripheral vascular disease, unspecified; I25.10 Atherosclerotic heart disease of native coronary artery without angina pectoris; I48.91 Unspecified atrial fibrillation; J44.9 Chronic obstructive pulmonary disease, unspecified; E78.5 Hyperlipidemia, unspecified; G47.33 Obstructive sleep apnea (adult) (pediatric) ==

== ENCOUNTER 2019-05-05 10:42 | Day surgery (SDC) | payer OTHER | END 2019-05-05 22:53 | disposition home or self-care (01) | LOC: WOUND 10:42 | PROC: 0JBN0ZZ Excision of Right Lower Leg Subcutaneous Tissue and Fascia, Open Approach (ICD-10-PCS; principal; 2019-05-05) | DX: E11.622 Type 2 diabetes mellitus with other skin ulcer (principal); L97.312 Non-pressure chronic ulcer of right ankle with fat layer exposed; E11.22 Type 2 diabetes mellitus with diabetic chronic kidney disease; N18.4 Chronic kidney disease, stage 4 (severe); I48.91 Unspecified atrial fibrillation; I12.9 Hypertensive chronic kidney disease with stage 1 through stage 4 chronic kidney disease, or unspecified chronic kidney disease; E11.42 Type 2 diabetes mellitus with diabetic polyneuropathy; E78.5 Hyperlipidemia, unspecified; G47.33 Obstructive sleep apnea (adult) (pediatric); I25.10 Atherosclerotic heart disease of native coronary artery without angina pectoris; I42.9 Cardiomyopathy, unspecified; L97.811 Non-pressure chronic ulcer of other part of right lower leg limited to breakdown of skin; S82.841D Displaced bimalleolar fracture of right lower leg, subsequent encounter for closed fracture with routine healing; Z95.810 Presence of automatic (implantable) cardiac defibrillator ==

== ENCOUNTER 2019-05-10 19:35 | Emergency (ER) | payer OTHER ==
[~2019-05-10] VITALS: Ht 172.7 cm; Wt 135.2 kg
== END 2019-05-10 21:33 | disposition home or self-care (01) ==
LOC: ER 19:35
DX: M25.532 Pain in left wrist (principal); E11.9 Type 2 diabetes mellitus without complications; I50.9 Heart failure, unspecified; J44.9 Chronic obstructive pulmonary disease, unspecified; I48.91 Unspecified atrial fibrillation; Z91.040 Latex allergy status; Z88.1 Allergy status to other antibiotic agents; Z79.899 Other long term (current) drug therapy; Z79.4 Long term (current) use of insulin; Z79.01 Long term (current) use of anticoagulants; Z79.82 Long term (current) use of aspirin; Z87.891 Personal history of nicotine dependence
CPT/HCPCS: 29125; 73110; 99283-25

== ENCOUNTER 2019-05-14 00:18 | Day surgery (SDC) | payer OTHER | END 2019-05-14 22:37 | disposition home or self-care (01) | LOC: WOUND | DX: E11.622 Type 2 diabetes mellitus with other skin ulcer (principal); L97.811 Non-pressure chronic ulcer of other part of right lower leg limited to breakdown of skin; S82.841D Displaced bimalleolar fracture of right lower leg, subsequent encounter for closed fracture with routine healing; E11.8 Type 2 diabetes mellitus with unspecified complications ==

== ENCOUNTER 2019-05-23 14:00 | Day surgery (SDC) | payer OTHER | END 2019-05-23 23:12 | disposition home or self-care (01) | LOC: WOUND | DX: E11.622 Type 2 diabetes mellitus with other skin ulcer (principal); L97.811 Non-pressure chronic ulcer of other part of right lower leg limited to breakdown of skin; S82.841D Displaced bimalleolar fracture of right lower leg, subsequent encounter for closed fracture with routine healing; I12.9 Hypertensive chronic kidney disease with stage 1 through stage 4 chronic kidney disease, or unspecified chronic kidney disease; E11.22 Type 2 diabetes mellitus with diabetic chronic kidney disease; N18.4 Chronic kidney disease, stage 4 (severe); E11.42 Type 2 diabetes mellitus with diabetic polyneuropathy; I25.10 Atherosclerotic heart disease of native coronary artery without angina pectoris; I48.91 Unspecified atrial fibrillation; E78.5 Hyperlipidemia, unspecified; G47.33 Obstructive sleep apnea (adult) (pediatric) ==

== ENCOUNTER 2019-05-30 02:01 | Day surgery (SDC) | payer OTHER | END 2019-05-31 00:03 | disposition home or self-care (01) | LOC: WOUND 02:01 | DX: E11.622 Type 2 diabetes mellitus with other skin ulcer (principal); L97.811 Non-pressure chronic ulcer of other part of right lower leg limited to breakdown of skin; S82.841D Displaced bimalleolar fracture of right lower leg, subsequent encounter for closed fracture with routine healing | CPT/HCPCS: 87071; 87075; 87205 ==

== ENCOUNTER 2019-06-06 10:44 | Day surgery (SDC) | payer OTHER | END 2019-06-06 23:08 | disposition home or self-care (01) | LOC: WOUND 10:44 | DX: E11.622 Type 2 diabetes mellitus with other skin ulcer (principal); L97.311 Non-pressure chronic ulcer of right ankle limited to breakdown of skin; S82.841D Displaced bimalleolar fracture of right lower leg, subsequent encounter for closed fracture with routine healing; I12.9 Hypertensive chronic kidney disease with stage 1 through stage 4 chronic kidney disease, or unspecified chronic kidney disease; E11.22 Type 2 diabetes mellitus with diabetic chronic kidney disease; N18.4 Chronic kidney disease, stage 4 (severe); I48.91 Unspecified atrial fibrillation; I25.10 Atherosclerotic heart disease of native coronary artery without angina pectoris; G47.33 Obstructive sleep apnea (adult) (pediatric) ==

== ENCOUNTER 2019-06-18 22:53 | Emergency (ER) | payer OTHER ==
[~2019-06-18] VITALS: Ht 172.7 cm; Wt 131.5 kg
[2019-06-18 23:20] LABS: BASOPHILS ABSOLUTE AUTO 0.06 K/mm3 (0.00-0.23); BASOPHILS PERCENT AUTO 1 % (0-2); EOSINOPHILS ABSOLUTE AUTO 0.37 K/mm3 (0.00-0.68); EOSINOPHILS PERCENT AUTO 4 % (0-6); Hematocrit 36.7 % (37.0-53.0); Hemoglobin 11.4 g/dL (13.5-17.5); IMMATURE GRAN ABSOLUTE AUTO 0.04 K/mm3 (0.00-0.10); IMMATURE GRAN PERCENT AUTO 0 % (0-1); LYMPHOCYTES ABSOLUTE AUTO 1.12 K/mm3 (0.84-5.20); LYMPHOCYTES PERCENT AUTO 12 % (21-46); MONOCYTES ABSOLUTE AUTO 0.68 K/mm3 (0.16-1.47); MONOCYTES PERCENT AUTO 8 % (4-13); Mean Corpuscular HGB 29.5 pg (26.0-34.0); Mean Corpuscular HGB Conc 31.1 g/dL (31.5-36.5); Mean Corpuscular Volume 95 fL (80-100); Mean Platelet Volume 9.2 fL (9.1-12.4); NEUTROPHILS ABSOLUTE AUTO 6.83 K/mm3 (1.96-9.15); NEUTROPHILS PERCENT AUTO 75 % (41-73); Platelet Count 329 K/mm3 (150-400); RDW Coefficient Variation 17.1 % (11.7-14.2); RDW Standard Deviation 58.7 fL (35.1-46.3); Red Blood Cell Count 3.87 M/mm3 (4.30-5.90)
[2019-06-18 23:35] LABS: International Normalized Ratio 1.78; Prothrombin Time Results 17.9 Sec (9.7-11.5)
[2019-06-18 23:40] LABS: Alanine Aminotransfer (ALT/SGP 10 U/L (12-78); Albumin, Blood 2.8 g/dL (3.4-5.0); Albumin/Globulin Ratio 0.5 (0.8-1.8); Alk Phos 89 U/L (50-136); Anion Gap 9 mmol/L (6-16); Aspartate Aminotrans (AST/SGOT 12 U/L (12-37); Bilirubin, Total 0.6 mg/dL (0.1-1.0); Blood Urea Nitrogen 38 mg/dL (8-24); Bun/Creatinine Ratio 15.3 (12.0-20.0); CO2, Blood 31 mmol/L (21-32); Calcium, Blood 8.1 mg/dL (8.5-10.1); Chloride, Blood 96 mmol/L (98-108); Creatinine, Blood 2.48 mg/dL (0.60-1.20); Globulin, Blood 5.5 g/dL (2.2-4.0); Glomerular Filtration Rate 28 (60-); Glucose, Blood 91 mg/dL (70-99); Potassium, Blood 3.3 mmol/L (3.5-5.5); Sodium, Blood 136 mmol/L (136-145); Total Protein, Blood 8.3 g/dL (6.4-8.2); Troponin I <0.015 ng/mL (0.000-0.040)
== END 2019-06-19 01:10 | disposition home or self-care (01) ==
LOC: ER 22:53
PROVIDERS: Emergency Medicine
DX: I95.9 Hypotension, unspecified (principal); R55 Syncope and collapse; Z91.040 Latex allergy status; Z88.1 Allergy status to other antibiotic agents; Z79.899 Other long term (current) drug therapy; Z79.4 Long term (current) use of insulin; Z79.01 Long term (current) use of anticoagulants; Z79.82 Long term (current) use of aspirin; E11.9 Type 2 diabetes mellitus without complications; I50.9 Heart failure, unspecified; I48.91 Unspecified atrial fibrillation; Z87.891 Personal history of nicotine dependence
CPT/HCPCS: 36415; 80053; 82947; 84484; 85025; 85610; 93005; 93010; 99284-25

== ENCOUNTER 2019-06-20 02:28 | Day surgery (SDC) | payer OTHER | END 2019-06-20 22:41 | disposition home or self-care (01) | LOC: WOUND 02:28 | DX: E11.622 Type 2 diabetes mellitus with other skin ulcer (principal); L97.319 Non-pressure chronic ulcer of right ankle with unspecified severity; E11.42 Type 2 diabetes mellitus with diabetic polyneuropathy; I13.2 Hypertensive heart and chronic kidney disease with heart failure and with stage 5 chronic kidney disease, or end stage renal disease; E11.22 Type 2 diabetes mellitus with diabetic chronic kidney disease; I50.9 Heart failure, unspecified; N18.6 End stage renal disease; D63.1 Anemia in chronic kidney disease; I25.10 Atherosclerotic heart disease of native coronary artery without angina pectoris; I48.91 Unspecified atrial fibrillation | CPT/HCPCS: G0463 ==

== ENCOUNTER 2019-07-13 15:41 | Emergency (ER) | payer OTHER ==
[~2019-07-13] VITALS: Ht 172.7 cm; Wt 129.3 kg
[2019-07-13] MEDS ORDERED: METO5 (16:04)
[2019-07-13] MEDS ORDERED: Metoprolol Succ25 MG PO (16:05)
[2019-07-13] MEDS ORDERED: POTCHL20ER PO (16:06)
[2019-07-13] MEDS ORDERED: Pedi-Dri 100,0060 GM TOP (16:07)
[2019-07-13] MEDS ORDERED: MORPHINE SULFAT10 MG PO (16:08)
[2019-07-13 16:12] LABS: BASOPHILS ABSOLUTE AUTO 0.04 K/mm3 (0.00-0.23); BASOPHILS PERCENT AUTO 0 % (0-2); EOSINOPHILS ABSOLUTE AUTO 0.31 K/mm3 (0.00-0.68); EOSINOPHILS PERCENT AUTO 3 % (0-6); Hematocrit 41.1 % (37.0-53.0); Hemoglobin 12.7 g/dL (13.5-17.5); IMMATURE GRAN ABSOLUTE AUTO 0.05 K/mm3 (0.00-0.10); IMMATURE GRAN PERCENT AUTO 1 % (0-1); LYMPHOCYTES ABSOLUTE AUTO 1.04 K/mm3 (0.84-5.20); LYMPHOCYTES PERCENT AUTO 9 % (21-46); MONOCYTES ABSOLUTE AUTO 0.59 K/mm3 (0.16-1.47); MONOCYTES PERCENT AUTO 5 % (4-13); Mean Corpuscular HGB 29.6 pg (26.0-34.0); Mean Corpuscular HGB Conc 30.9 g/dL (31.5-36.5); Mean Corpuscular Volume 96 fL (80-100); NEUTROPHILS ABSOLUTE AUTO 9.08 K/mm3 (1.96-9.15); NEUTROPHILS PERCENT AUTO 82 % (41-73); Platelet Count 397 K/mm3 (150-400); RDW Coefficient Variation 17.2 % (11.7-14.2); RDW Standard Deviation 59.3 fL (35.1-46.3); Red Blood Cell Count 4.29 M/mm3 (4.30-5.90); White Blood Cell Count 11.11 K/mm3 (4.00-11.30)
[2019-07-13 16:22] LABS: Alanine Aminotransfer (ALT/SGP 9 U/L (12-78); Albumin, Blood 2.7 g/dL (3.4-5.0); Albumin/Globulin Ratio 0.5 (0.8-1.8); Alk Phos 85 U/L (50-136); Anion Gap 9 mmol/L (6-16); Aspartate Aminotrans (AST/SGOT 24 U/L (12-37); Bilirubin, Total 0.8 mg/dL (0.1-1.0); Blood Urea Nitrogen 42 mg/dL (8-24); Bun/Creatinine Ratio 21.5 (12.0-20.0); CO2, Blood 28 mmol/L (21-32); Calcium, Blood 8.9 mg/dL (8.5-10.1); Chloride, Blood 93 mmol/L (98-108); Creatinine, Blood 1.95 mg/dL (0.60-1.20); Globulin, Blood 5.9 g/dL (2.2-4.0); Glomerular Filtration Rate 37 (60-); Glucose, Blood 159 mg/dL (70-99); Potassium, Blood 3.4 mmol/L (3.5-5.5); Sodium, Blood 130 mmol/L (136-145); Total Protein, Blood 8.6 g/dL (6.4-8.2); Troponin I <0.015 ng/mL (0.000-0.040)
== END 2019-07-13 18:35 | disposition home or self-care (01) ==
LOC: ER 15:41
PROVIDERS: Physician Assistant
DX: E87.1 Hypo-osmolality and hyponatremia (principal); E11.9 Type 2 diabetes mellitus without complications; I50.9 Heart failure, unspecified; D68.8 Other specified coagulation defects; Z91.040 Latex allergy status; Z88.1 Allergy status to other antibiotic agents; Z79.899 Other long term (current) drug therapy; Z79.4 Long term (current) use of insulin; Z79.01 Long term (current) use of anticoagulants; Z79.82 Long term (current) use of aspirin; W18.39XA Other fall on same level, initial encounter
CPT/HCPCS: 36415; 70450; 73502; 80053; 84484; 85025; 93005; 93010; 99285-25

== ENCOUNTER 2019-07-31 06:32 | Emergency (ER) | payer OTHER ==
[~2019-07-31] VITALS: Ht 172.7 cm; Wt 129.3 kg
[~2019-07-31 06:32] MED LIST changes: +METO5; +MORPHINE SULFAT10 MG PO; +Metoprolol Succ25 MG PO; +Pedi-Dri 100,0060 GM TOP
== END 2019-07-31 08:19 | disposition home or self-care (01) ==
LOC: ER 06:32
DX: S00.33XA Contusion of nose, initial encounter (principal); E11.9 Type 2 diabetes mellitus without complications; I50.9 Heart failure, unspecified; Z87.891 Personal history of nicotine dependence; Z88.1 Allergy status to other antibiotic agents; Z91.040 Latex allergy status; Z79.899 Other long term (current) drug therapy; Z79.4 Long term (current) use of insulin; Z79.01 Long term (current) use of anticoagulants; Z79.82 Long term (current) use of aspirin; W01.10XA Fall on same level from slipping, tripping and stumbling with subsequent striking against unspecified object, initial encounter; R07.9 Chest pain, unspecified; I25.10 Atherosclerotic heart disease of native coronary artery without angina pectoris; I48.91 Unspecified atrial fibrillation; E11.40 Type 2 diabetes mellitus with diabetic neuropathy, unspecified; J44.9 Chronic obstructive pulmonary disease, unspecified; F32.9 Major depressive disorder, single episode, unspecified; K21.9 Gastro-esophageal reflux disease without esophagitis; Z79.891 Long term (current) use of opiate analgesic
CPT/HCPCS: 99283

== ENCOUNTER 2019-10-16 02:25 | Observation (INO) | payer OTHER ==
[~2019-10-16] VITALS: Ht 172.7 cm; Wt 133.7 kg
[~2019-10-16 02:25] MED LIST changes: +Bumetanide1 MG PO; -INSULANPEN
[2019-10-16 03:54] LABS: BASOPHILS ABSOLUTE AUTO 0.04 K/mm3 (0.00-0.23); BASOPHILS PERCENT AUTO 1 % (0-2); EOSINOPHILS ABSOLUTE AUTO 0.31 K/mm3 (0.00-0.68); EOSINOPHILS PERCENT AUTO 5 % (0-6); Hematocrit 41.2 % (37.0-53.0); Hemoglobin 12.7 g/dL (13.5-17.5); IMMATURE GRAN ABSOLUTE AUTO 0.02 K/mm3 (0.00-0.10); IMMATURE GRAN PERCENT AUTO 0 % (0-1); LYMPHOCYTES ABSOLUTE AUTO 0.78 K/mm3 (0.84-5.20); LYMPHOCYTES PERCENT AUTO 12 % (21-46); MONOCYTES PERCENT AUTO 8 % (4-13); Mean Corpuscular HGB 31.1 pg (26.0-34.0); Mean Corpuscular HGB Conc 30.8 g/dL (31.5-36.5); Mean Corpuscular Volume 101 fL (80-100); Mean Platelet Volume 9.6 fL (9.1-12.4); NEUTROPHILS ABSOLUTE AUTO 4.81 K/mm3 (1.96-9.15); NEUTROPHILS PERCENT AUTO 75 % (41-73); NRBC ABSOLUTE 0.02 K/mm3 (0.00-0.02); NRBC Auto 0.3 /100 WBC (0.0-0.2); Platelet Count 230 K/mm3 (150-400); RDW Standard Deviation 58.4 fL (35.1-46.3); Red Blood Cell Count 4.08 M/mm3 (4.30-5.90); White Blood Cell Count 6.46 K/mm3 (4.00-11.30)
[2019-10-16 04:12] LABS: Albumin, Blood 2.9 g/dL (3.4-5.0); Albumin/Globulin Ratio 0.6 (0.8-1.8); Bilirubin, Total 0.7 mg/dL (0.1-1.0); Bun/Creatinine Ratio 18.9 (12.0-20.0); Calcium, Blood 9.1 mg/dL (8.5-10.1); Creatinine, Blood 2.64 mg/dL (0.60-1.20); Globulin, Blood 5.1 g/dL (2.2-4.0); Potassium, Blood 3.4 mmol/L (3.5-5.5)
--- NOTE | 2019-10-16 13:39 | NUR ---
ASSUMED CARE OF PATIENT FROM JOSELIN EARLY. NO ACUTE CHANGES FROM PREVIOUS METALLURGIST HELPER. PATIENT DENIES PAIN OR OTHER COMPLAINTS. DENIES NEEDS. CURRENTLY UP IN RECLINER. WOUND DRSGS APPEAR CLEAN AND INTACT AT THIS TIME.
[2019-10-16 15:51] LABS: International Normalized Ratio 1.33; Prothrombin Time Results 13.7 Sec (9.7-11.5)
--- NOTE | 2019-10-16 18:50 | NUR ---
SHIFT SUMMARY PATIENT C/O DIFFICULTY HOLDING OBJECTS WHICH IS OUT OF HIS BASELINE NORM. NOTIFIED DR BISWAS OF PATIENTS CONCERN THIS AFTERNOON BUT PT REPORTS HE DID NOT SEE HIM. PATIENT IS STABLE. POSS DC TO SNF TOMORROW. WOUNDS TO BLE CLEAN AND INTACT. VSS. HOME MORPHINE LOCKED IN PATIENT DRAWER. MORPHINE COUNT AND ADMINISTRATION LOG IN ON FRONT OF CHART. VERFIED WITH ROSSI RUDOLPH RN.
--- NOTE | 2019-10-17 04:54 | NUR ---
Shift Summary Patient slept well overnight. Assisted to repostition overnight. He ambulated with 1 assist, GBW to the bathroom. No c/o pain offered. Dressings to BLE remain dry and intact. Dressing to bilateral buttocks changes, wounds cleansed and dried.
[2019-10-17 04:58] LABS: International Normalized Ratio 1.33; Prothrombin Time Results 13.7 Sec (9.7-11.5)
[2019-10-17 05:00] LABS: Bun/Creatinine Ratio 19.8 (12.0-20.0); Calcium, Blood 8.9 mg/dL (8.5-10.1); Creatinine, Blood 2.52 mg/dL (0.60-1.20); Potassium, Blood 3.1 mmol/L (3.5-5.5)
--- NOTE | 2019-10-17 16:10 | NUR ---
WOUND CARE DONE AND FRESH DRESSINGS APPLIED TO B/L LOWER LEGS. PT TOLERATED WELL, FRESH MEPILEX APPLIED TO BUTTOCKS
--- NOTE | 2019-10-17 19:11 | NUR ---
NO ACUTE CHANGES NOTED THIS SHIFT. POSSIBLE DISCHARGE TO .. [facility]. WILL CONTINUE TO MONITOR AND REPORT TO ONCOMING RN
--- NOTE | 2019-10-18 04:30 | NUR ---
Shift Summary Patient slept intermittently overnight. He had an apparent episode of orthostatic hypotension, and was lowered to the floor by staff. No injuries apparent immediately after fall. Dr Aceves was notified and IVF ordered.
[2019-10-18 05:07] LABS: BASOPHILS ABSOLUTE AUTO 0.04 K/mm3 (0.00-0.23); BASOPHILS PERCENT AUTO 1 % (0-2); EOSINOPHILS ABSOLUTE AUTO 0.42 K/mm3 (0.00-0.68); EOSINOPHILS PERCENT AUTO 8 % (0-6); Hematocrit 33.4 % (37.0-53.0); Hemoglobin 10.5 g/dL (13.5-17.5); IMMATURE GRAN ABSOLUTE AUTO 0.03 K/mm3 (0.00-0.10); IMMATURE GRAN PERCENT AUTO 1 % (0-1); LYMPHOCYTES ABSOLUTE AUTO 0.81 K/mm3 (0.84-5.20); LYMPHOCYTES PERCENT AUTO 15 % (21-46); MONOCYTES ABSOLUTE AUTO 0.61 K/mm3 (0.16-1.47); MONOCYTES PERCENT AUTO 11 % (4-13); Mean Corpuscular HGB 31.3 pg (26.0-34.0); Mean Corpuscular HGB Conc 31.4 g/dL (31.5-36.5); Mean Corpuscular Volume 100 fL (80-100); Mean Platelet Volume 10.3 fL (9.1-12.4); NEUTROPHILS ABSOLUTE AUTO 3.52 K/mm3 (1.96-9.15); NEUTROPHILS PERCENT AUTO 65 % (41-73); NRBC ABSOLUTE 0.04 K/mm3 (0.00-0.02); NRBC Auto 0.7 /100 WBC (0.0-0.2); Platelet Count 216 K/mm3 (150-400); RDW Coefficient Variation 16.1 % (11.7-14.2); RDW Standard Deviation 58.1 fL (35.1-46.3); Red Blood Cell Count 3.35 M/mm3 (4.30-5.90); White Blood Cell Count 5.43 K/mm3 (4.00-11.30)
[2019-10-18 05:20] LABS: International Normalized Ratio 1.49; Prothrombin Time Results 15.2 Sec (9.7-11.5)
[2019-10-18 05:31] LABS: Calcium, Blood 8.6 mg/dL (8.5-10.1); Creatinine, Blood 2.62 mg/dL (0.60-1.20); Potassium, Blood 3.3 mmol/L (3.5-5.5)
[2019-10-18] MEDS ORDERED: CLIN300 PO (10:21)
--- NOTE | 2019-10-18 13:45 | NUR ---
Discharge Summary A/Ox4, report given to receiving nurse @ [facility]. Patient transported by [facility] transport services, IV removed by primer inserting machine operator (Kenia), and packet provided to route driver along with face sheet. Home medication Morphine and personal belongings sent with patient to facility.
== END 2019-10-18 13:45 ==
LOC: ER 02:25 → MEDS 02:26
PROVIDERS: Emergency Medicine; Hospitalist; ADMIT Internal Medicine
DX: R29.6 Repeated falls (principal); E11.628 Type 2 diabetes mellitus with other skin complications; L03.115 Cellulitis of right lower limb; L03.116 Cellulitis of left lower limb; E11.22 Type 2 diabetes mellitus with diabetic chronic kidney disease; N18.4 Chronic kidney disease, stage 4 (severe); I42.9 Cardiomyopathy, unspecified; E11.42 Type 2 diabetes mellitus with diabetic polyneuropathy; I48.20 Chronic atrial fibrillation, unspecified; E87.6 Hypokalemia; I25.10 Atherosclerotic heart disease of native coronary artery without angina pectoris; I95.1 Orthostatic hypotension; J44.9 Chronic obstructive pulmonary disease, unspecified; M81.0 Age-related osteoporosis without current pathological fracture; I50.9 Heart failure, unspecified; D75.9 Disease of blood and blood-forming organs, unspecified; M19.90 Unspecified osteoarthritis, unspecified site; M10.9 Gout, unspecified; F32.9 Major depressive disorder, single episode, unspecified; K21.9 Gastro-esophageal reflux disease without esophagitis; G47.33 Obstructive sleep apnea (adult) (pediatric); E66.01 Morbid (severe) obesity due to excess calories; Z68.41 Body mass index [BMI] 40.0-44.9, adult; Z95.810 Presence of automatic (implantable) cardiac defibrillator; Z95.5 Presence of coronary angioplasty implant and graft; Z88.1 Allergy status to other antibiotic agents; Z91.040 Latex allergy status; Z79.4 Long term (current) use of insulin; Z79.01 Long term (current) use of anticoagulants; Z79.82 Long term (current) use of aspirin; Z79.899 Other long term (current) drug therapy; Z87.891 Personal history of nicotine dependence
CPT/HCPCS: 36415; 71046; 80048; 80053; 82947; 83605; 83690; 85025; 85610; 87040; 96361; 96365; 96366; 96367; 96376; 97110; 97116; 97162; 97166; 97530; 99285-25; A9270; G0378; J0692; J2543; J7050; J7120

== ENCOUNTER 2019-11-16 12:54 | Emergency (ER) | payer OTHER ==
[~2019-11-16] VITALS: Ht 172.7 cm; Wt 127.0 kg
[~2019-11-16 12:54] MED LIST changes: +CLIN300 PO; -METO5
[2019-11-16] MEDS ORDERED: BUSP10 PO (13:35)
[2019-11-16] MEDS ORDERED: PREG150 PO (13:36)
[2019-11-16 13:38] LABS: BASOPHILS ABSOLUTE AUTO 0.04 K/mm3 (0.00-0.23); BASOPHILS PERCENT AUTO 1 % (0-2); EOSINOPHILS ABSOLUTE AUTO 0.44 K/mm3 (0.00-0.68); EOSINOPHILS PERCENT AUTO 6 % (0-6); Hematocrit 40.2 % (37.0-53.0); Hemoglobin 12.4 g/dL (13.5-17.5); IMMATURE GRAN ABSOLUTE AUTO 0.03 K/mm3 (0.00-0.10); IMMATURE GRAN PERCENT AUTO 0 % (0-1); LYMPHOCYTES ABSOLUTE AUTO 0.95 K/mm3 (0.84-5.20); LYMPHOCYTES PERCENT AUTO 12 % (21-46); MONOCYTES ABSOLUTE AUTO 0.45 K/mm3 (0.16-1.47); MONOCYTES PERCENT AUTO 6 % (4-13); Mean Corpuscular HGB 31.2 pg (26.0-34.0); Mean Corpuscular HGB Conc 30.8 g/dL (31.5-36.5); Mean Corpuscular Volume 101 fL (80-100); Mean Platelet Volume 10.4 fL (9.1-12.4); NEUTROPHILS ABSOLUTE AUTO 5.93 K/mm3 (1.96-9.15); NEUTROPHILS PERCENT AUTO 76 % (41-73); NRBC ABSOLUTE 0.02 K/mm3 (0.00-0.02); NRBC Auto 0.3 /100 WBC (0.0-0.2); Platelet Count 206 K/mm3 (150-400); RDW Coefficient Variation 15.3 % (11.7-14.2); RDW Standard Deviation 56.3 fL (35.1-46.3); Red Blood Cell Count 3.97 M/mm3 (4.30-5.90); White Blood Cell Count 7.84 K/mm3 (4.00-11.30)
[2019-11-16] MEDS ORDERED: PANT40 PO (13:38)
[2019-11-16] MEDS ORDERED: FAMO20 PO (13:40)
[2019-11-16] MEDS ORDERED: BENADRYL25 M1 PO (13:42)
[2019-11-16] MEDS ORDERED: FEROSUL325 MG PO (13:43)
[2019-11-16] MEDS ORDERED: DULERA 200 MCG/13 GM INH (13:45)
[2019-11-16] MEDS ORDERED: MYLANTA TONIGH355 ML PO (13:46)
[2019-11-16] MEDS ORDERED: OMEPRAZOLE20 MG PO (13:46)
[2019-11-16] MEDS ORDERED: Flonase 0.05% N16 GM (13:46)
[2019-11-16 13:56] LABS: Albumin, Blood 2.7 g/dL (3.4-5.0); Albumin/Globulin Ratio 0.5 (0.8-1.8); Bilirubin, Total 0.9 mg/dL (0.1-1.0); Bun/Creatinine Ratio 18.6 (12.0-20.0); Calcium, Blood 8.1 mg/dL (8.5-10.1); Creatinine, Blood 2.42 mg/dL (0.60-1.20); Globulin, Blood 5.2 g/dL (2.2-4.0); Potassium, Blood 3.7 mmol/L (3.5-5.5); Total Protein, Blood 7.9 g/dL (6.4-8.2)
[2019-11-16] MEDS ORDERED: ROBITUSSIN100 MG/5 M PO (15:26)
== END 2019-11-16 15:45 | disposition home or self-care (01) ==
LOC: ER 12:54
PROVIDERS: Emergency Medicine
DX: M47.812 Spondylosis without myelopathy or radiculopathy, cervical region (principal); E11.22 Type 2 diabetes mellitus with diabetic chronic kidney disease; N18.9 Chronic kidney disease, unspecified; I50.9 Heart failure, unspecified; J44.9 Chronic obstructive pulmonary disease, unspecified; I48.91 Unspecified atrial fibrillation; Z91.040 Latex allergy status; Z88.1 Allergy status to other antibiotic agents; Z79.899 Other long term (current) drug therapy; Z79.01 Long term (current) use of anticoagulants; Z79.82 Long term (current) use of aspirin; Z79.4 Long term (current) use of insulin; Z87.891 Personal history of nicotine dependence
CPT/HCPCS: 36415; 72020; 80053; 85025; 93005; 93010; 99285-25

== ENCOUNTER 2019-11-17 18:09 | Emergency (ER) | payer OTHER ==
[~2019-11-17] VITALS: Ht 172.7 cm; Wt 127.0 kg
[~2019-11-17 18:09] MED LIST changes: +BENADRYL25 M1 PO; +BUSP10 PO; +DULERA 200 MCG/13 GM INH; +FAMO20 PO; +FEROSUL325 MG PO; +MYLANTA TONIGH355 ML PO; +PREG150 PO; +ROBITUSSIN100 MG/5 M PO
[2019-11-17 19:29] LABS: BASOPHILS ABSOLUTE AUTO 0.06 K/mm3 (0.00-0.23); BASOPHILS PERCENT AUTO 1 % (0-2); EOSINOPHILS ABSOLUTE AUTO 0.37 K/mm3 (0.00-0.68); EOSINOPHILS PERCENT AUTO 4 % (0-6); Hematocrit 41.7 % (37.0-53.0); Hemoglobin 12.9 g/dL (13.5-17.5); IMMATURE GRAN ABSOLUTE AUTO 0.04 K/mm3 (0.00-0.10); IMMATURE GRAN PERCENT AUTO 1 % (0-1); LYMPHOCYTES ABSOLUTE AUTO 1.01 K/mm3 (0.84-5.20); LYMPHOCYTES PERCENT AUTO 12 % (21-46); MONOCYTES ABSOLUTE AUTO 0.55 K/mm3 (0.16-1.47); MONOCYTES PERCENT AUTO 7 % (4-13); Mean Corpuscular HGB 30.6 pg (26.0-34.0); Mean Corpuscular HGB Conc 30.9 g/dL (31.5-36.5); Mean Corpuscular Volume 99 fL (80-100); NEUTROPHILS ABSOLUTE AUTO 6.42 K/mm3 (1.96-9.15); NEUTROPHILS PERCENT AUTO 76 % (41-73); NRBC ABSOLUTE 0.03 K/mm3 (0.00-0.02); NRBC Auto 0.4 /100 WBC (0.0-0.2); Platelet Count 261 K/mm3 (150-400); RDW Coefficient Variation 15.7 % (11.7-14.2); RDW Standard Deviation 56.7 fL (35.1-46.3); Red Blood Cell Count 4.21 M/mm3 (4.30-5.90); White Blood Cell Count 8.45 K/mm3 (4.00-11.30)
[2019-11-17 19:35] LABS: Albumin, Blood 2.7 g/dL (3.4-5.0); Calcium, Blood 8.2 mg/dL (8.5-10.1); Potassium, Blood 3.4 mmol/L (3.5-5.5)
[2019-11-17 19:39] LABS: International Normalized Ratio 1.7; Prothrombin Time Results 17.7 Sec (9.7-11.5)
[2019-11-17 19:57] LABS: Albumin/Globulin Ratio 0.6 (0.8-1.8); Bilirubin, Total 1.3 mg/dL (0.1-1.0); Bun/Creatinine Ratio 20.4 (12.0-20.0); Creatinine, Blood 1.96 mg/dL (0.60-1.20); Globulin, Blood 4.7 g/dL (2.2-4.0); Total Protein, Blood 7.4 g/dL (6.4-8.2)
== END 2019-11-17 20:42 | disposition home or self-care (01) ==
LOC: ER 18:09
PROVIDERS: Emergency Medicine
DX: R29.898 Other symptoms and signs involving the musculoskeletal system (principal); E11.22 Type 2 diabetes mellitus with diabetic chronic kidney disease; N18.9 Chronic kidney disease, unspecified; Z91.040 Latex allergy status; Z88.1 Allergy status to other antibiotic agents; Z79.899 Other long term (current) drug therapy; Z79.01 Long term (current) use of anticoagulants; Z79.82 Long term (current) use of aspirin; Z79.4 Long term (current) use of insulin; J44.9 Chronic obstructive pulmonary disease, unspecified; I50.9 Heart failure, unspecified; I48.91 Unspecified atrial fibrillation; Z87.891 Personal history of nicotine dependence
CPT/HCPCS: 36415; 71046; 80053; 85025; 85610; 93005; 93010; 99284-25

== ENCOUNTER 2019-12-29 17:39 | Observation (INO) | payer OTHER ==
[~2019-12-29] VITALS: Ht 172.7 cm; Wt 144.4 kg
[~2019-12-29 17:39] MED LIST changes: -BUSP10 PO; -MORPHINE SULFAT10 MG PO; +MS CONTIN15 MG PO
[2019-12-29 18:51] LABS: BASOPHILS ABSOLUTE AUTO 0.06 K/mm3 (0.00-0.23); BASOPHILS PERCENT AUTO 1 % (0-2); EOSINOPHILS ABSOLUTE AUTO 0.43 K/mm3 (0.00-0.68); EOSINOPHILS PERCENT AUTO 6 % (0-6); Hemoglobin 10.9 g/dL (13.5-17.5); IMMATURE GRAN ABSOLUTE AUTO 0.05 K/mm3 (0.00-0.10); IMMATURE GRAN PERCENT AUTO 1 % (0-1); LYMPHOCYTES ABSOLUTE AUTO 0.82 K/mm3 (0.84-5.20); LYMPHOCYTES PERCENT AUTO 12 % (21-46); MONOCYTES PERCENT AUTO 10 % (4-13); Mean Corpuscular HGB Conc 31.1 g/dL (31.5-36.5); Mean Corpuscular Volume 99 fL (80-100); NEUTROPHILS ABSOLUTE AUTO 5.03 K/mm3 (1.96-9.15); NEUTROPHILS PERCENT AUTO 71 % (41-73); NRBC ABSOLUTE 0.02 K/mm3 (0.00-0.02); NRBC Auto 0.3 /100 WBC (0.0-0.2); RDW Coefficient Variation 16.5 % (11.7-14.2); RDW Standard Deviation 59.7 fL (35.1-46.3); Red Blood Cell Count 3.52 M/mm3 (4.30-5.90); White Blood Cell Count 7.09 K/mm3 (4.00-11.30)
[2019-12-29 19:09] LABS: Mean Platelet Volume 10.7 fL (9.1-12.4); Platelet Count 192 K/mm3 (150-400)
[2019-12-29 19:26] LABS: Alanine Aminotransfer (ALT/SGP 14 U/L (12-78); Albumin, Blood 2.6 g/dL (3.4-5.0); Albumin/Globulin Ratio 0.5 (0.8-1.8); Alk Phos 158 U/L (50-136); Anion Gap 7 mmol/L (6-16); Aspartate Aminotrans (AST/SGOT 20 U/L (12-37); Bilirubin, Total 0.9 mg/dL (0.1-1.0); Blood Urea Nitrogen 63 mg/dL (8-24); Bun/Creatinine Ratio 20.7 (12.0-20.0); CO2, Blood 27 mmol/L (21-32); Calcium, Blood 8.5 mg/dL (8.5-10.1); Chloride, Blood 99 mmol/L (98-108); Creatinine, Blood 3.05 mg/dL (0.60-1.20); Globulin, Blood 4.9 g/dL (2.2-4.0); Glomerular Filtration Rate 22 (60-); Glucose, Blood 150 mg/dL (70-99); Magnesium, Blood 2.1 mg/dL (1.6-2.4); Potassium, Blood 4.6 mmol/L (3.5-5.5); Sodium, Blood 133 mmol/L (136-145); Total Protein, Blood 7.5 g/dL (6.4-8.2)
[2019-12-29] MEDS ORDERED: PREGABALIN75 MG PO (19:45)
[2019-12-29] MEDS ORDERED: ATOR10 PO (19:50)
[2019-12-29 21:24] LABS: Troponin I <0.015 ng/mL (0.000-0.040)
--- NOTE | 2019-12-29 21:51 | NUR ---
Transfer report from Emely EARLY in ER on PT with multiple medical problems recurrant falls JOSEPHINE IDDM Cardiomyopathy CHF Cardiac stents x 5 AICD HX CKD stage 4. He lives alone per report is unable to get up OOB or care for self. Await admission. 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 Will screen for needed isolation.
[2019-12-30 05:58] LABS: BASOPHILS ABSOLUTE AUTO 0.05 K/mm3 (0.00-0.23); BASOPHILS PERCENT AUTO 1 % (0-2); EOSINOPHILS ABSOLUTE AUTO 0.46 K/mm3 (0.00-0.68); EOSINOPHILS PERCENT AUTO 7 % (0-6); Hematocrit 32.4 % (37.0-53.0); Hemoglobin 10.4 g/dL (13.5-17.5); IMMATURE GRAN ABSOLUTE AUTO 0.04 K/mm3 (0.00-0.10); IMMATURE GRAN PERCENT AUTO 1 % (0-1); LYMPHOCYTES ABSOLUTE AUTO 0.99 K/mm3 (0.84-5.20); LYMPHOCYTES PERCENT AUTO 16 % (21-46); MONOCYTES ABSOLUTE AUTO 0.63 K/mm3 (0.16-1.47); MONOCYTES PERCENT AUTO 10 % (4-13); Mean Corpuscular HGB 31.2 pg (26.0-34.0); Mean Corpuscular HGB Conc 32.1 g/dL (31.5-36.5); Mean Corpuscular Volume 97 fL (80-100); Mean Platelet Volume 10.4 fL (9.1-12.4); NEUTROPHILS ABSOLUTE AUTO 4.16 K/mm3 (1.96-9.15); NEUTROPHILS PERCENT AUTO 66 % (41-73); Platelet Count 252 K/mm3 (150-400); RDW Coefficient Variation 16.4 % (11.7-14.2); RDW Standard Deviation 57.3 fL (35.1-46.3); Red Blood Cell Count 3.33 M/mm3 (4.30-5.90); White Blood Cell Count 6.33 K/mm3 (4.00-11.30)
--- NOTE | 2019-12-30 06:06 | NUR ---
PT admitted from Home after daily caregiver found PT incontinent and unable to ambulate. PT was to have evaluation for adult foster care this AM but is currently outpt. PT has multiple wounds hx of MRSA. PhotoDOC done. Wound care orders obtained. MRSA swabs of wounds and nares sent. UA ordered in ER , not collected. Urine missed by DIRECTOR OF CONSULTING SERVICES will collect. BG AC HS ordered, PT reports he was instructed to hold his insulins due to severe hypoglycemia. BG fasting this AM 106. PT has cpap and oxygen set up bioxx present occasionally desats for short periods. HAs loose cough Sputum culture for bacteria ordered & PT placed in droplet contact due to hx of resp tract MRSA and active cough.
[2019-12-30 06:12] LABS: Bun/Creatinine Ratio 21.5 (12.0-20.0); Calcium, Blood 8.7 mg/dL (8.5-10.1); Creatinine, Blood 2.84 mg/dL (0.60-1.20)
[2019-12-30 06:14] LABS: International Normalized Ratio 1.45; Prothrombin Time Results 15.2 Sec (9.7-11.5)
[2019-12-30 18:12] LABS: Source, Urine Clean Catch
--- NOTE | 2019-12-30 18:15 | NUR ---
SHIFT SUMMARY PT AWAKE FOR SHIFT REPORTL. ADMITTED FOR IMPAIRED MOBILITY DURING NOC SHIFT. PT WEAK WITH FALLS AT HOME. P/T IN TO WORK WITH PT IN AM. PT UP TO CHAIR FOR A WHILE VIA FWW AND GAIT BELT. PER REPORT, PT WAS TO HAVE BEEN EVALUATED AT HOME THIS AM BY ADULT FOSTER CARE, BUT ENDED UP IN HOSPITAL. PT REPORTED RECENT R ANKLE FX AND WAS AT FOR 3 MO AND THEN ONLY HOME FOR 1 MONTH. HX OF STROKE PER REPORT. SP EVAL DONE TODAY. PO INTAKE CHANGED BY SP TX. PT WITH MULTIPLE SCABS AND SM WOUNDS SCATTERED BODY WIDE. SOME AT LEAST WERE R/T FALLS AT HOME AND PT CRAWLING ON HIS KNEES. SPUTUM AND UA BOTH OBTAINED AND SENT. CALLS FOR ASSIST WITH URINAL. PT CURRENTLY TALKING ON HIS CELL PHONE. DENIED FURTHER NEEDS. CALL LT IN REACH.
[2019-12-30 18:16] LABS: Bilirubin, Urine Neg (Neg); Blood, Urine Neg (Neg); Glucose Qualitative, Urine Neg (Neg); Ketones, Urine Neg (Neg); Leukocyte Esterase, Urine Neg (Neg); Nitrite, Urine Neg (Neg); Protein, Urine Neg (Neg); Specific Gravity, Urine 1.015 (1.003-1.022); Urobilinogen, Urine NORM (Normal)
[2019-12-30 18:18] LABS: Appearance, Urine Clear (Clear); Color, Urine Yellow (P-Yellow)
[2019-12-31 05:34] LABS: International Normalized Ratio 1.39; Prothrombin Time Results 14.6 Sec (9.7-11.5)
--- NOTE | 2019-12-31 19:35 | NUR ---
SUMMARY- PT ALERT AND ORIENTED, COOPERATIVE, FORGETFUL TO DETAIL AT TIMES. IN GOOD SPIRITS THIS SHIFT. GOT UP TO THE CHAIR FOR MEALS AND TO BSC TO HAVE BM AND TO VOID. TOLERATING MEALS WITH NO SIGHN OF ASPIRATION. SPEECH MOVED HIM TO A MECH SOFT/ADA DIET. SUGARS IN GOOD LIMITS. PT'S SKIN HAS REDNESS IN PANUS FOLDS AND RECTAL CREASE, CLEANSED WELL AND APPLIED CALAZYME. LE ULCERATIONS AND KNEE SCABS DRY AND LEFT ASSOCIATE CHIEF NURSE. PT STATES PAIN IN LEGS AND NOTIFIED DR WELSH WHO OK'D MS CONTIN CHANGED TO 15MG QAM INCLUDING A NOW DOSE AROUND 1400. PT HAD XXXXLG HARD BM. PT HAS HX CONSTIPATION. FAMILY CALLED AND REQ INCREASE IN STOOL SOFTNERS AND A FIBER LAX ADDED. DR WELSH ORDERED INCREASE IN THESE FOR PREVENTION OF CONSTIPATION.
--- NOTE | 2020-01-01 01:55 | NUR ---
Late entry DR Obi Tobin called around 2200 about PT IV was not patent leaking and had to be DC. He has hypercoag state and IV had been oozing since insertion but had oozed on bedding etc. DR Tobin OK no IV access needed and change bumex from IV to oral route. Oders written later than they were given by DR Tobin.
[2020-01-01 05:21] LABS: BASOPHILS ABSOLUTE AUTO 0.05 K/mm3 (0.00-0.23); BASOPHILS PERCENT AUTO 1 % (0-2); EOSINOPHILS ABSOLUTE AUTO 0.36 K/mm3 (0.00-0.68); EOSINOPHILS PERCENT AUTO 7 % (0-6); Hematocrit 31.9 % (37.0-53.0); Hemoglobin 10.2 g/dL (13.5-17.5); IMMATURE GRAN ABSOLUTE AUTO 0.06 K/mm3 (0.00-0.10); IMMATURE GRAN PERCENT AUTO 1 % (0-1); LYMPHOCYTES ABSOLUTE AUTO 0.88 K/mm3 (0.84-5.20); LYMPHOCYTES PERCENT AUTO 16 % (21-46); MONOCYTES ABSOLUTE AUTO 0.64 K/mm3 (0.16-1.47); MONOCYTES PERCENT AUTO 12 % (4-13); Mean Corpuscular HGB 31.1 pg (26.0-34.0); Mean Corpuscular Volume 97 fL (80-100); Mean Platelet Volume 10.6 fL (9.1-12.4); NEUTROPHILS ABSOLUTE AUTO 3.57 K/mm3 (1.96-9.15); NEUTROPHILS PERCENT AUTO 64 % (41-73); Platelet Count 230 K/mm3 (150-400); RDW Coefficient Variation 16.4 % (11.7-14.2); RDW Standard Deviation 57.1 fL (35.1-46.3); Red Blood Cell Count 3.28 M/mm3 (4.30-5.90); White Blood Cell Count 5.56 K/mm3 (4.00-11.30)
[2020-01-01 05:35] LABS: International Normalized Ratio 1.5; Prothrombin Time Results 15.7 Sec (9.7-11.5)
[2020-01-01 05:45] LABS: Percent Saturation 22.1 % (20.0-50.0)
[2020-01-01 06:07] LABS: Albumin, Blood 2.4 g/dL (3.4-5.0); Albumin/Globulin Ratio 0.5 (0.8-1.8); Bilirubin, Total 0.9 mg/dL (0.1-1.0); Bun/Creatinine Ratio 24.4 (12.0-20.0); Calcium, Blood 8.8 mg/dL (8.5-10.1); Creatinine, Blood 2.62 mg/dL (0.60-1.20); Globulin, Blood 4.6 g/dL (2.2-4.0); Magnesium, Blood 1.8 mg/dL (1.6-2.4); Potassium, Blood 3.9 mmol/L (3.5-5.5)
--- NOTE | 2020-01-01 06:18 | NUR ---
PT much improved loc, able to work with therapy and sit in recliner and feed self. He has dried scabs scattered, hx of MRSA. Final results of skin wound and nares pending. Skin integrity improving slightly with wound care. Sputum production decreased, final sputum culture pending. Lacks support at home due to needs extensive assist with ADLS. PT tolerating mech soft diet. edentulous no dentures available. PT has cardiomyopathy, AICD ? Pacemaker. Continues poor historian, no attempts to climb out of bed or chair unassisted. compliant with hospital cpap with 2 l bleed in as per home routine. Refused bioxx due to alarms without desats.
--- NOTE | 2020-01-01 16:30 | NUR ---
PATIENT D/C'D TO [facility] VIA TRANSPORT. REPORT CALLED TO ALICIA. PACKET GIVEN TO INFANTRY SENIOR SERGEANT WITH HARD SCRIPT FOR PO MORPHINE CR. PATIENT DENIES ANY FURTHER QUESTIONS OR CONCERNS.
== END 2020-01-01 16:22 ==
LOC: ER 17:39 → MEDS 17:40
PROVIDERS: Emergency Medicine; Internal Medicine; Nurse Practitioner Acute Care; ADMIT Internal Medicine
DX: R26.9 Unspecified abnormalities of gait and mobility (principal); R13.10 Dysphagia, unspecified; R29.6 Repeated falls; I50.22 Chronic systolic (congestive) heart failure; J96.11 Chronic respiratory failure with hypoxia; E11.40 Type 2 diabetes mellitus with diabetic neuropathy, unspecified; E11.22 Type 2 diabetes mellitus with diabetic chronic kidney disease; N18.4 Chronic kidney disease, stage 4 (severe); I25.10 Atherosclerotic heart disease of native coronary artery without angina pectoris; J44.9 Chronic obstructive pulmonary disease, unspecified; I48.91 Unspecified atrial fibrillation; G47.33 Obstructive sleep apnea (adult) (pediatric); E66.01 Morbid (severe) obesity due to excess calories; Z23 Encounter for immunization; Z99.89 Dependence on other enabling machines and devices; Z99.81 Dependence on supplemental oxygen; Z87.891 Personal history of nicotine dependence; Z88.1 Allergy status to other antibiotic agents; Z91.040 Latex allergy status; Z79.899 Other long term (current) drug therapy; Z79.82 Long term (current) use of aspirin; Z79.01 Long term (current) use of anticoagulants; Z68.41 Body mass index [BMI] 40.0-44.9, adult
CPT/HCPCS: 36415; 71045; 80048; 80053; 81003; 82728; 82947; 83540; 83550; 83735; 83880; 84484; 85025; 85610; 87081; 90686; 90732; 92526; 92610; 94640; 94660; 94762; 96360; 96372; 96372-59; 96375; 97110; 97116; 97163; 97166; 97530; 97535; 99285-25; A9270-GY; G0008; G0009; G0378; J1644; J7030

== ENCOUNTER 2020-01-10 21:01 | Emergency (ER) | payer OTHER ==
[~2020-01-10] VITALS: Ht 177.8 cm; Wt 158.8 kg
[~2020-01-10 21:01] MED LIST changes: +PREGABALIN75 MG PO
[2020-01-10 21:35] LABS: BASOPHILS ABSOLUTE AUTO 0.06 K/mm3 (0.00-0.23); BASOPHILS PERCENT AUTO 1 % (0-2); EOSINOPHILS ABSOLUTE AUTO 0.26 K/mm3 (0.00-0.68); EOSINOPHILS PERCENT AUTO 3 % (0-6); Hematocrit 32.8 % (37.0-53.0); Hemoglobin 10.5 g/dL (13.5-17.5); IMMATURE GRAN ABSOLUTE AUTO 0.04 K/mm3 (0.00-0.10); IMMATURE GRAN PERCENT AUTO 1 % (0-1); LYMPHOCYTES ABSOLUTE AUTO 0.77 K/mm3 (0.84-5.20); LYMPHOCYTES PERCENT AUTO 9 % (21-46); MONOCYTES ABSOLUTE AUTO 0.93 K/mm3 (0.16-1.47); MONOCYTES PERCENT AUTO 11 % (4-13); Mean Corpuscular HGB 31.7 pg (26.0-34.0); Mean Corpuscular Volume 99 fL (80-100); Mean Platelet Volume 10.4 fL (9.1-12.4); NEUTROPHILS ABSOLUTE AUTO 6.49 K/mm3 (1.96-9.15); NEUTROPHILS PERCENT AUTO 76 % (41-73); NRBC ABSOLUTE 0.06 K/mm3 (0.00-0.02); NRBC Auto 0.7 /100 WBC (0.0-0.2); Platelet Count 245 K/mm3 (150-400); RDW Coefficient Variation 17.4 % (11.7-14.2); RDW Standard Deviation 61.6 fL (35.1-46.3); Red Blood Cell Count 3.31 M/mm3 (4.30-5.90); White Blood Cell Count 8.55 K/mm3 (4.00-11.30)
[2020-01-10 21:48] LABS: Albumin, Blood 2.9 g/dL (3.4-5.0); Albumin/Globulin Ratio 0.6 (0.8-1.8); Bilirubin, Total 1.5 mg/dL (0.1-1.0); Bun/Creatinine Ratio 25.7 (12.0-20.0); Calcium, Blood 9.3 mg/dL (8.5-10.1); Creatinine, Blood 2.41 mg/dL (0.60-1.20); Potassium, Blood 4.3 mmol/L (3.5-5.5); Total Protein, Blood 7.9 g/dL (6.4-8.2)
[2020-01-10 22:13] LABS: Source, Urine Clean Catch
[2020-01-10 22:15] LABS: Bilirubin, Urine Neg (Neg); Blood, Urine Neg (Neg); Glucose Qualitative, Urine Neg (Neg); Ketones, Urine Neg (Neg); Leukocyte Esterase, Urine 1+ (Neg); Nitrite, Urine Neg (Neg); Protein, Urine Neg (Neg); Urobilinogen, Urine NORM (Normal)
[2020-01-10 22:21] LABS: Appearance, Urine Clear (Clear); Color, Urine Yellow (P-Yellow)
[2020-01-10 22:23] LABS: Bacteria Rare /hpf; Red Blood Cells, Urine Not Seen /hpf (0-2); Squamous Epithelial Cells Few /hpf (Few)
== END 2020-01-10 23:20 | disposition home or self-care (01) ==
LOC: ER 21:01
PROVIDERS: Emergency Medicine
DX: J44.9 Chronic obstructive pulmonary disease, unspecified (principal); E11.22 Type 2 diabetes mellitus with diabetic chronic kidney disease; N18.4 Chronic kidney disease, stage 4 (severe); I50.9 Heart failure, unspecified; I48.91 Unspecified atrial fibrillation; I25.10 Atherosclerotic heart disease of native coronary artery without angina pectoris; E66.01 Morbid (severe) obesity due to excess calories; Z68.43 Body mass index [BMI] 50.0-59.9, adult; Z87.891 Personal history of nicotine dependence; Z91.040 Latex allergy status; Z88.1 Allergy status to other antibiotic agents; Z79.01 Long term (current) use of anticoagulants; Z79.82 Long term (current) use of aspirin; Z79.899 Other long term (current) drug therapy; Z79.4 Long term (current) use of insulin
CPT/HCPCS: 36415; 71045; 80053; 81001; 85025; 87086; 93005; 93010; 99285-25

== ENCOUNTER → 2020-01-16 | Outpatient (CLI) | payer OTHER ==
[~2020-01-16] MED LIST changes: +ACET325 PO; +ALBU90OI INH; +Flonase 0.05% N16 GM INH; +HUMALOG KW200 UNIT/1 SC; +LIQUID PROTEIN PO; +LOSA25 PO; +Nystatin15 GM TOP; +SENOKOT17.2 MG PO; +TORS10 PO; +VANCOMYCIN1 GM/2001 IV; +VISBIOME 112.51 EACH PO
[2020-01-16 04:44] LABS: BASOPHILS ABSOLUTE AUTO 0.05 K/mm3 (0.00-0.23); BASOPHILS PERCENT AUTO 1 % (0-2); EOSINOPHILS ABSOLUTE AUTO 0.23 K/mm3 (0.00-0.68); EOSINOPHILS PERCENT AUTO 3 % (0-6); Hematocrit 34.9 % (37.0-53.0); Hemoglobin 10.8 g/dL (13.5-17.5); IMMATURE GRAN ABSOLUTE AUTO 0.02 K/mm3 (0.00-0.10); IMMATURE GRAN PERCENT AUTO 0 % (0-1); LYMPHOCYTES ABSOLUTE AUTO 0.76 K/mm3 (0.84-5.20); LYMPHOCYTES PERCENT AUTO 11 % (21-46); MONOCYTES ABSOLUTE AUTO 0.72 K/mm3 (0.16-1.47); MONOCYTES PERCENT AUTO 11 % (4-13); Mean Corpuscular HGB 31.4 pg (26.0-34.0); Mean Corpuscular HGB Conc 30.9 g/dL (31.5-36.5); Mean Platelet Volume 10.5 fL (9.1-12.4); NEUTROPHILS PERCENT AUTO 74 % (41-73); NRBC ABSOLUTE 0.02 K/mm3 (0.00-0.02); NRBC Auto 0.3 /100 WBC (0.0-0.2); Platelet Count 248 K/mm3 (150-400); RDW Coefficient Variation 18.2 % (11.7-14.2); RDW Standard Deviation 64.9 fL (35.1-46.3); Red Blood Cell Count 3.44 M/mm3 (4.30-5.90); White Blood Cell Count 6.78 K/mm3 (4.00-11.30)
[2020-01-16 04:45] LABS: Mean Corpuscular Volume 102 fL (80-100)
[2020-01-16 04:59] LABS: Albumin, Blood 2.8 g/dL (3.4-5.0); Albumin/Globulin Ratio 0.6 (0.8-1.8); Bilirubin, Direct 0.7 mg/dL (0.0-0.3); Bilirubin, Indirect 0.5 mg/dL (0.1-0.7); Bilirubin, Total 1.2 mg/dL (0.1-1.0); Bun/Creatinine Ratio 24.7 (12.0-20.0); Calcium, Blood 9.4 mg/dL (8.5-10.1); Creatinine, Blood 2.15 mg/dL (0.60-1.20); Globulin, Blood 4.7 g/dL (2.2-4.0); Phosphorus, Blood 3.3 mg/dL (2.5-4.9); Potassium, Blood 4.2 mmol/L (3.5-5.5); Total Protein, Blood 7.5 g/dL (6.4-8.2)
== END | disposition home or self-care (01) ==
LOC: LAB UVN 04:34 → EDSTATUS 10:55
PROVIDERS: Family Medicine
DX: N18.4 Chronic kidney disease, stage 4 (severe) (principal); D63.1 Anemia in chronic kidney disease
CPT/HCPCS: 80053; 82248; 84100; 85025

== ENCOUNTER 2020-01-18 23:38 | Inpatient (IN) | payer OTHER ==
[~2020-01-18] VITALS: Ht 172.7 cm; Wt 142.0 kg
[~2020-01-18 23:38] MED LIST changes: -ACET325 PO; -ALBU90OI INH; -Flonase 0.05% N16 GM INH; -HUMALOG KW200 UNIT/1 SC; -LIQUID PROTEIN PO; -LOSA25 PO; -Nystatin15 GM TOP; -SENOKOT17.2 MG PO; -TORS10 PO; -VANCOMYCIN1 GM/2001 IV; -VISBIOME 112.51 EACH PO
[2020-01-19 00:02] LABS: Hematocrit 33.9 % (37.0-53.0); Hemoglobin 10.7 g/dL (13.5-17.5); Mean Corpuscular HGB 31.6 pg (26.0-34.0); Mean Corpuscular HGB Conc 31.6 g/dL (31.5-36.5); Mean Corpuscular Volume 100 fL (80-100); Mean Platelet Volume 10.6 fL (9.1-12.4); NRBC ABSOLUTE 0.03 K/mm3 (0.00-0.02); NRBC Auto 0.1 /100 WBC (0.0-0.2); Platelet Count 243 K/mm3 (150-400); RDW Coefficient Variation 18.5 % (11.7-14.2); RDW Standard Deviation 65.3 fL (35.1-46.3); Red Blood Cell Count 3.39 M/mm3 (4.30-5.90); White Blood Cell Count 25.67 K/mm3 (4.00-11.30)
[2020-01-19 00:20] LABS: BAND PERCENT MAN 9 % (0-8); BASOPHILS PERCENT MAN 0 % (0-2); EOSINOPHILS PERCENT MAN 0 % (0-6); LYMPHOCYTES ABSOLUTE MAN 0.51 K/mm3 (0.84-5.20); LYMPHOCYTES PERCENT MAN 2 % (21-46); MONOCYTES ABSOLUTE MAN 0.77 K/mm3 (0.16-1.47); MONOCYTES PERCENT MAN 3 % (4-13); NEUTROPHILS ABSOLUTE MAN 24.38 K/mm3 (1.96-9.15); SEG NEUTROPHILS PERCENT MAN 86 % (41-73); TOTAL CELLS COUNTED 100
[2020-01-19 00:22] LABS: Albumin, Blood 2.6 g/dL (3.4-5.0); Albumin/Globulin Ratio 0.6 (0.8-1.8); Bilirubin, Total 1.6 mg/dL (0.1-1.0); Bun/Creatinine Ratio 25.1 (12.0-20.0); Calcium, Blood 9.4 mg/dL (8.5-10.1); Creatinine, Blood 2.55 mg/dL (0.60-1.20); Globulin, Blood 4.7 g/dL (2.2-4.0); Total Protein, Blood 7.3 g/dL (6.4-8.2); Troponin I 0.03 ng/mL (0.000-0.040)
[2020-01-19] MEDS ORDERED: Flonase 0.05% N16 GM INH (00:24)
[2020-01-19] MEDS ORDERED: POTCHL20ER PO (00:25)
[2020-01-19] MEDS ORDERED: LIQUID PROTEIN PO (00:27)
[2020-01-19 01:11] LABS: International Normalized Ratio 2.54; Prothrombin Time Results 25.8 Sec (9.7-11.5)
[2020-01-19 01:42] LABS: PCO2 Arterial 48.6 mmHg (35-45); PO2 Arterial 66.2 mmHg (80-100); pH Blood Arterial 7.41 (7.35-7.45)
[2020-01-19 03:27] LABS: Adenovirus Not Detected (NOT DETECT); Bordetella pertussis Not Detected (NOT DETECT); Chlamydophila pneumoniae Not Detected (NOT DETECT); Coronavirus 229E Not Detected (NOT DETECT); Coronavirus HKU1 Not Detected (NOT DETECT); Coronavirus NL63 Not Detected (NOT DETECT); Coronavirus OC43 Not Detected (NOT DETECT); Human Metapneumovirus Not Detected (NOT DETECT); Human Rhinovirus/Enterovirus Not Detected (NOT DETECT); Influenza A/2009-H1 Not Detected (NOT DETECT); Influenza A/H1 Not Detected (NOT DETECT); Influenza A/H3 Not Detected (NOT DETECT); Influenza B Not Detected (NOT DETECT); Mycoplasma pneumoniae Not Detected (NOT DETECT); Parainfluenza Virus 1 Not Detected (NOT DETECT); Parainfluenza Virus 2 Not Detected (NOT DETECT); Parainfluenza Virus 3 Not Detected (NOT DETECT); Parainfluenza Virus 4 Not Detected (NOT DETECT); Respiratory Syncytial Virus Not Detected (NOT DETECT)
[2020-01-19 05:46] LABS: Hematocrit 31.5 % (37.0-53.0); Hemoglobin 9.9 g/dL (13.5-17.5); Mean Corpuscular HGB 31.6 pg (26.0-34.0); Mean Corpuscular HGB Conc 31.4 g/dL (31.5-36.5); Mean Corpuscular Volume 101 fL (80-100); NRBC ABSOLUTE 0.02 K/mm3 (0.00-0.02); NRBC Auto 0.1 /100 WBC (0.0-0.2); Platelet Count 210 K/mm3 (150-400); RDW Coefficient Variation 18.3 % (11.7-14.2); RDW Standard Deviation 65.5 fL (35.1-46.3); Red Blood Cell Count 3.13 M/mm3 (4.30-5.90); White Blood Cell Count 22.42 K/mm3 (4.00-11.30)
[2020-01-19 05:57] LABS: Albumin, Blood 2.3 g/dL (3.4-5.0); Albumin/Globulin Ratio 0.5 (0.8-1.8); Bilirubin, Total 1.7 mg/dL (0.1-1.0); Calcium, Blood 8.9 mg/dL (8.5-10.1); Creatinine, Blood 2.6 mg/dL (0.60-1.20); Globulin, Blood 4.4 g/dL (2.2-4.0); Potassium, Blood 4.8 mmol/L (3.5-5.5); Total Protein, Blood 6.7 g/dL (6.4-8.2)
--- NOTE | 2020-01-19 07:47 | NUR ---
SHIFT SUMMARY PATIENT ARRIVED FROM ED @ 03:10 VIA STRETCHER. HAD DIFFICULT TIME EVALUATING SPO2, POOR PERFUSION EVERYWHERE, COULD NOT GET GOOD READING WITH ANY PROBE, INCREASED FIO2 ON BIPAP TO ENSURE ADEQUATE OXYGENATION, AT ONE POINT REACHING 100%. AFTER RECEIVING 1L NS BOLUS, CIRCULATION IMPROVED, WAS ABLE TO GET GOOD SPO2 READING ON TOP OF LEFT EAR. DECREASED BIPAP FIO2 TO 65%. ADMISSION ASSESSMENT COMPLETED WITH AID OF [facility] RECORDS, PRIOR MEDICAL RECORDS. ASSESSMENT IS CHARTED. VSS. IT HAS BEEN A PLEASURE TAKING CARE OF THIS PATIENT.
--- NOTE | 2020-01-19 08:01 | NUR ---
CARE ASSUMED CARE AND REPORT ASSUMED FROM LIZZETTE EARLY. PT ON BIPAP 29/05, 65%. LUNG SOUNDS COARSE BUT DIFFICULT TO AUSCULTATE. ALERT AND ORIENTED X PERSON, PLACE, AND FOLLOWS DIRECTIONS APPROPRIATELY. DENIES PAIN AT THIS TIME. AFEBRILE 97.6. BP LOW; WILL CONTINUE TO MONITOR. CURRENTLY IN AFIB, HR 90S. D5 1/2 NS INFUSING AT 100 ML/HR PER ORDER. WILL CONTINUE TO MONITOR.
[2020-01-19 12:01] LABS: Source, Urine Catheter
--- NOTE | 2020-01-19 12:01 | NUR ---
REASSESSMENT PT AWAKE AND ALERT AND ORIENTED TO PLACE AND SELF WHEN IN ROOM. CONTINUES TO HAVE SPASTIC, TWITCHING MOVEMENTS IN ALL EXTREMITIES. REMAINS IN AFIB, HR 120S. CONTINUES TO TOLERATE 4L NC. GORDON CATHETER INSERTED AND UA SENT TO LAB. D5 1/2 NS INFUSING AT 100 ML/HR PER ORDER. PT TURNED AND LINENS CHANGED. LOWER EXTREMITIES ARE WEEPING DIFFUSELY; WILL MONITOR. WILL CONTINUE TO MONITOR.
[2020-01-19 12:31] LABS: Bilirubin, Urine Neg (Neg); Blood, Urine Neg (Neg); Glucose Qualitative, Urine Neg (Neg); Ketones, Urine Neg (Neg); Leukocyte Esterase, Urine 1+ (Neg); Nitrite, Urine Neg (Neg); Protein, Urine Neg (Neg); Urobilinogen, Urine NORM (Normal)
[2020-01-19 12:48] LABS: Appearance, Urine Clear (Clear); Color, Urine Yellow (P-Yellow)
[2020-01-19 12:51] LABS: Bacteria Few /hpf; Red Blood Cells, Urine 0-2 /hpf (0-2); Squamous Epithelial Cells Few /hpf (Few)
--- NOTE | 2020-01-19 14:20 | NUR ---
BARIATRIC BED PT PLACED ONTO LIFT SHIFT AND WITH ASSIST OF ADDIOTIONAL RN AND CEILING LIFT, PT WAS LIFTED ONTO BARIATRIC BED. TURNED ONTO L SIDE; PT ASSISTED WITH TURNS. VSS. WILL CONTINUE TO MONITOR.
--- NOTE | 2020-01-19 17:42 | NUR ---
SHIFT SUMMARY PT TRANSITIONED FROM BIPAP TO 4L NC IN AM PER REQUEST OF MD COLUNGA SINCE ABG WAS CLOSE TO NORMAL LIMITS. HAD DIFFICULTY OBTAINING SPO2 READING DUE TO POOR CIRCULATION. PT HAS REMAINED IN AFIB ENTIRE SHIFT, HR 90-120S. BP SOFT WITH MAP GREATER THAN 65 THROUGHOUT SHIFT. LEVOPHED NOT NEEDED THROUGHOUT SHIFT. D5 1/2 NS X 1 BAG INFUSED THROUGHOUT DAY. TKO AND ABX NOW INFUSING. PT TRANSFERRED ONTO BARIATRIC BED AND HAS BEEN ABLE TO TURN Q2H. PT HAS STRONG COUGH AND HAS BEEN COUGHING UP BECERRA/YELLOW SPUTUM; NO SAMPLE YET OBTAINED. PERIPHERAL IV DISCONTINUED AND NEW ONE INSERTED. GORDON CATHETER INSERTED AT SHIFT. WILL GIVE BEDSIDE, HANDOFF REPORT TO JOSE LUIS EARLY.
--- NOTE | 2020-01-19 19:36 | NUR ---
LAB CALLED TO INFORM THAT BLOOD CULTURES POSITIVE FOR GRAM + COCCI IN CLUSTERS. JERRICA MADRID NOTIFIED. NO NEW ORDERS RECEIVED.
--- NOTE | 2020-01-19 20:00 | NUR ---
ASSUMPTION OF CARE: PT ORIENTED TO SELF, SITUATION, FAMILY. PT DROWSY AND IS HAVING SOME UNCONTROLLABLE MUSCLE TWITCHING THAT PT STATES IS NORMAL FOR HIM. PT ALSO APPEARS TO POSSIBLY BE HALLUCINATING STATING THAT HIS BROTHER WAS IN THE HOSPITAL TO VISIT AND THAT SOMEONE WAS STANDING IN THE CORNER OF HIS ROOM. FEBRILE WITH TEMP OF 99.7. IN A FIB. HR IN THE 90S-100S. BP HAS BEEN SOFT WITH SBP IN THE 90S. LUNG SOUDNS ARE COARSE AND DIM IN BASES. CURRENTLY ON 4LNC. SPO2 >90%. HAS BIPAP ON STANDBY IF NECESSARY. GORDON IN PLACE. PIV IN R HAND AND L WRIST. L WRIST IV INFUSING WITH TKO AND R HAND IS PATENT AND SL. WILL CONTINUE TO MONITOR
[2020-01-20 04:05] LABS: BASOPHILS ABSOLUTE AUTO 0.05 K/mm3 (0.00-0.23); BASOPHILS PERCENT AUTO 0 % (0-2); EOSINOPHILS ABSOLUTE AUTO 0.32 K/mm3 (0.00-0.68); EOSINOPHILS PERCENT AUTO 2 % (0-6); Hematocrit 33.9 % (37.0-53.0); Hemoglobin 10.5 g/dL (13.5-17.5); IMMATURE GRAN ABSOLUTE AUTO 0.17 K/mm3 (0.00-0.10); IMMATURE GRAN PERCENT AUTO 1 % (0-1); LYMPHOCYTES ABSOLUTE AUTO 0.45 K/mm3 (0.84-5.20); LYMPHOCYTES PERCENT AUTO 2 % (21-46); MONOCYTES ABSOLUTE AUTO 0.88 K/mm3 (0.16-1.47); MONOCYTES PERCENT AUTO 5 % (4-13); Mean Corpuscular HGB 31.2 pg (26.0-34.0); Mean Corpuscular Volume 101 fL (80-100); Mean Platelet Volume 11.1 fL (9.1-12.4); NEUTROPHILS ABSOLUTE AUTO 16.78 K/mm3 (1.96-9.15); NEUTROPHILS PERCENT AUTO 90 % (41-73); NRBC ABSOLUTE 0.03 K/mm3 (0.00-0.02); NRBC Auto 0.2 /100 WBC (0.0-0.2); Platelet Count 206 K/mm3 (150-400); RDW Coefficient Variation 18.3 % (11.7-14.2); RDW Standard Deviation 66.8 fL (35.1-46.3); Red Blood Cell Count 3.37 M/mm3 (4.30-5.90); White Blood Cell Count 18.65 K/mm3 (4.00-11.30)
[2020-01-20 04:30] LABS: Anion Gap 8 mmol/L (6-16); Blood Urea Nitrogen 69 mg/dL (8-24); Bun/Creatinine Ratio 26.2 (12.0-20.0); CO2, Blood 29 mmol/L (21-32); Calcium, Blood 8.8 mg/dL (8.5-10.1); Chloride, Blood 100 mmol/L (98-108); Creatinine, Blood 2.63 mg/dL (0.60-1.20); Glomerular Filtration Rate 26 (60-); Glucose, Blood 93 mg/dL (70-99); Potassium, Blood 4.6 mmol/L (3.5-5.5); Sodium, Blood 137 mmol/L (136-145)
[2020-01-20 04:34] LABS: Vancomycin, Trough 30.5 ug/mL (5.0-10.0)
--- NOTE | 2020-01-20 05:52 | NUR ---
SUMMARY: NO ACUTE CHANGES T/O SHIFT. AFEBRILE CURRENTLY. PT HAS SLEPT FOR ABOUT HALF OF THE SHIFT. IN AFIB. HR IN THE 90-100S. BP HAS BEEN SOFT HOWEVER MAP HAS REMAINED >60. PT IS CURRENTLY ON 5-6L NC WHILE ASLEEP. SPO2 >90%. BIPAP IS ON STANDBY IF PT NEEDS IT. CURRENTLY NPO BUT TOLERATES ICE CHIPS. CBG AT 2300 ON THE LOW SIDE AT 70. ORDERS FROM JERRICA MADRID FOR Q2 BLOOD SUGAR CHECKS. IF CBG IS ABOVE 100 X 2 THEN CBG CAN BE Q4. Q2H CHECKS HAVE BEEN 100, 98, 81. GORDON IN PLACE DRAINING YELLOW URINE. PIVS IN R HAND AND L WRIST. L WRIST INFUSING WITH NS AT TKO. WILL PASS REPORT TO ONCOMING SHIFT
--- NOTE | 2020-01-20 17:41 | NUR ---
SHIFT SUMMARY PT DID WELL THIS SHIFT. PT SLEPT FOR SHORT PERIODS OF THE DAY, OTHERWISE HAS REMAINED ALERT AND ORIENTED. PT WITH PERIODS OF CONFUSION, BUT EASILY REORIENTED. PT HAS DENIED PAIN, NAUSEA, OR SOB. PT ON 4L O2 NC. PT WITH NON PRODUCTIVE COUGH THROUGHOUT THE DAY. HR REMAINS AFIB 100-130'S, BP STABLE. PT MOVES EXTREMITIES WITH TREMORS NOTED. NS INFUSING TKO. PT TOLERATING PO FLUIDS AND FOODS WELL. GORDON TEMP PROBE REMAINS IN PLACE WITH DARK YELLOW OUTPUT NOTED. WILL CONTINUE TO MONITOR AND REPORT OFF TO ONCOMING RN.
--- NOTE | 2020-01-20 20:39 | NUR ---
ASSUMED PT CARE FROM NNEKA SALAZAR AT 1900 PT RESTING IN BED WATCHING T.V. ALERT AND ORIENTED AND ABLE TO MAKE HIS NEEDS KNOWN. OCCASIONALLY FORGETFUL, BUT IS AWARE THAT HE IS FORGETFUL. ON 6L VIA NC WITH BIOX 90-95%. NONPRODUCTIVE COUGH NOTED. LUNG SOUNDS ARE CLEAR TO DIM T/O ON RIGHT AND DIM WITH EXPIRATORY WHEEZES NOTED TO BOTH UPPER AND LOWER LEFT LOBES. AFIB WITH RVR; HR 120'S-140'S; BP'S STABLE. SEE FLOWSHEET. PT IS VERY OBESE AND REQUIRES Q2 TURNING; PT IS ON A BARIATRIC BED. PT HAS GENERALIZED EDEMA NOTED WITH +3 PITTING TO BILATERAL UPPER THIGHS. PT HAS VERY FRAGILE SKIN WITH MULTIPLE SCATTERED SCABS TO BLE, SCATTERED BRUISING WELL, AND REDNESS TO BLE, ABDOMINAL FOLDS, AND UNDER BILATERAL BREASTS/PECS. WILL REDRESS ALL OPEN WOUNDS LATER THIS SHIFT THEY WERE LAST CHANGED ON 01/17. PT DENIES ANY PAIN. NOTED TO HAVE A BASELINE TREMOR WITH JERKY MOVEMENTS TO BLE'S. PT STATES THIS IS NORMAL FOR HIM AND THE DOCTORS ARE UNSURE TO WHAT IS CAUSING IT. CALL LIGHT WITHIN REACH; PT IS ABLE TO MAKE NEEDS KNOWN.
[2020-01-20 21:45] LABS: Vancomycin, Trough 24.1 ug/mL (5.0-10.0)
--- NOTE | 2020-01-21 06:38 | NUR ---
END OF SHIFT SUMMARY PT REMAINS ALERT AND ORIENTED; ABLE TO MAKE NEEDS KNOWN. OXYGEN TITRATED DOWN TO 2L VIA NC; BIOX REMAINS 92-95%. AFIB WITH HR 90-120'S WHILE RESTING, AND UP TO 140'S WITH EXERTION. BP'S STABLE; SEE FLOWSHEET. GORDON CATHETER REMAINS PATENT AND DRAINING DARK, YELLOW URINE TO GRAVITY; 750CC OUT THIS SHIFT. PT REMAINS ON BARIATRIC BED AND REQUIRES Q2HR TURNING. CHANGED DRESSINGS TO BLE'S. APPLIED CALAZIME CREAM TO DRY, SCALY, FLAKY SKIN ON BOTH FEET, CLEANSED LEFT HEEL WITH WOUND CLEANSER, PATTED DRY, APPLIED HYDROGEL TO WOUND BED, COVERED WITH FOAM DRESSING, AND SECURED WITH KERLEX. ALL OTHER WOUNDS LEFT SEPIDEH D/T SHEEN APPEARANCE WITH NO DRAINAGE; APPLIED SKIN PREP TO APPLY BARRIER AND PROTECT FROM FURTHER DETERIORATION. PT REMAINS VERY EDEMATOUS WITH WEEPING EDEMA TO BLE'S; DRY FLOWS IN PLACE. PT STATES HE FEELS HE IS HAVING A BM; HOWEVER, WHEN CHECKED HE WAS CLEAN AND DRY. CALL LIGHT WITHIN REACH AND PT IS ABLE TO MAKE HIS NEEDS KNOWN. WILL CONTINUE TO MONITOR UNTIL REPORT IS HANDED OFF TO ONCOMING RN.
--- NOTE | 2020-01-21 07:06 | NUR ---
ASSUMED CARE: PT RESTING IN BED, 2L NC IN PLACE. AFIB 1TEENS TO 120S. NO ACUTE NEEDS OR CONCERNS AT THIS TIME.
--- NOTE | 2020-01-21 08:41 | NUR ---
CALL TO DR MARTINES REGARDING PT'S HR. MAINTAINING 130S CONSISTENTLY WITH BPS IN 90S SY[address] DR MARTINES ORDERED BOLUS AT THIS TIME. UNABLE TO RESTART HOME MEDS DUE TO BLOOD PRESSURES. DR BARRY OVALLE EVALUATE LATER THIS AM
[2020-01-21 09:07] LABS: BASOPHILS ABSOLUTE AUTO 0.05 K/mm3 (0.00-0.23); BASOPHILS PERCENT AUTO 0 % (0-2); EOSINOPHILS ABSOLUTE AUTO 0.21 K/mm3 (0.00-0.68); EOSINOPHILS PERCENT AUTO 1 % (0-6); Hematocrit 34.8 % (37.0-53.0); IMMATURE GRAN ABSOLUTE AUTO 0.15 K/mm3 (0.00-0.10); IMMATURE GRAN PERCENT AUTO 1 % (0-1); LYMPHOCYTES ABSOLUTE AUTO 0.54 K/mm3 (0.84-5.20); LYMPHOCYTES PERCENT AUTO 3 % (21-46); MONOCYTES ABSOLUTE AUTO 1.19 K/mm3 (0.16-1.47); MONOCYTES PERCENT AUTO 6 % (4-13); Mean Corpuscular HGB 31.4 pg (26.0-34.0); Mean Corpuscular HGB Conc 31.6 g/dL (31.5-36.5); Mean Corpuscular Volume 99 fL (80-100); Mean Platelet Volume 11.2 fL (9.1-12.4); NEUTROPHILS ABSOLUTE AUTO 17.22 K/mm3 (1.96-9.15); NEUTROPHILS PERCENT AUTO 89 % (41-73); Platelet Count 225 K/mm3 (150-400); RDW Coefficient Variation 18.1 % (11.7-14.2); RDW Standard Deviation 65.5 fL (35.1-46.3); White Blood Cell Count 19.36 K/mm3 (4.00-11.30)
[2020-01-21 09:26] LABS: Calcium, Blood 9.6 mg/dL (8.5-10.1); Creatinine, Blood 2.24 mg/dL (0.60-1.20); Potassium, Blood 4.4 mmol/L (3.5-5.5)
--- NOTE | 2020-01-21 09:42 | NUR ---
PT CALLED NURSE INTO ROOM, STATED HE WAS SOB. CHECKED SATURATION, MID 80S. OXYGEN UP TO 2.5L NC. LUNG SOUNDS UNCHANGED FROM AM ASSESSMENT. BP IMPROVED WITH FLUID BOLUS BUT HR TOUCHING INTO 160S NOW. WILL COMPLETE BOLUS AND UPDATE MD.
--- NOTE | 2020-01-21 10:05 | NUR ---
CALL TO DR MARTINES TO MAKE HIM AWARE OF VITAL SIGNS AFTER BOLUS. STATES HE WOULD BE IN UNIT TO SEE PT SHORTLY. ALSO CALLED ANTONIO LIRA TO SEE IF SOMEONE COULD BRING PT'S CELL PHONE, FACILITIES MANAGEMENT EXECUTIVE AND GLASSES. STAFF SAID THEY WOULD SPEAK WITH DRAMATIC CRITIC.
--- NOTE | 2020-01-21 10:35 | NUR ---
DR MARTINES HERE TO SEE PT. DISCUSSED CASE WITH HIM, NEW ORDERS. ORDERING ECHO AND KEEPING ICU STATUS DUE TO SOFT BPS AND ELEVATED HRS. PT RESTING IN BED, 3L NC AT THIS TIME.
--- NOTE | 2020-01-21 17:41 | NUR ---
SHIFT SUMMARY: PT RESTING IN BED. REPOSITIONING Q2. PT ALSO ASSISTS WITH REPOSITIONING IN BED. ASSISTS WELL WITH BED MOBILITY. MEDICATED WITH IV METOPROLOL X2 WITH IMPROVEMENT IN HR AND BLOOD PRESSURES. CRYPTOLOGIC SUPERVISOR AWARE. NO ACUTE NEEDS OR CONCERNS AT THIS TIME. RAILROAD WORKER AT BEDSIDE ASSISTING WITH TV REMOTE.
--- NOTE | 2020-01-21 18:40 | NUR ---
PT NEEDED ASSISTANCE ROLLING OVER IN BED. WHEN ROLLING HE ATTEMPTED TO STICK HIS LEGS OUT OF BED AND STARTED TO SLIDE OUT OF BED. 2 OTHER STAFF MEMBERS NEEDED TO GET HIM REPOSITIONED. PT C/O ANXIETY ASSISTED WITH CALMING AND BREATHING TECHNIQUES. SITTING UPRIGHT IN BED WITH COOL RAG PROVIDED.
--- NOTE | 2020-01-21 19:13 | NUR ---
REPORT GIVEN TO NNEKA RAMEY. UPON FURTHER ASSESSMENT PT WAS MORE CONFUSED AND SOB. TANVIR PUT PT ON BIPAP AND THIS RN CALLED JULIUS TO DISCUSS NEW CONFUSION WITH HER. ORDER FOR ABG, RT AT BEDSIDE AT THIS TIME. JULIUS STATES PUT GET ABG AND CALL HER WITH RESULTS TO DETERMINE IF ANXIETY MEDS ARE NEEDED.
[2020-01-21 19:48] LABS: PCO2 Arterial 35.7 mmHg (35-45); PO2 Arterial 183 mmHg (80-100); pH Blood Arterial 7.36 (7.35-7.45)
--- NOTE | 2020-01-21 21:35 | NUR ---
ASSUMED PT CARE AT 1915 FROM NNEKA OHARA PT RESTLESS IN BED. HR NOTED TO BE AFIB IN THE 150'S-170'S. UPON ENTERING ROOM TO ASSESS SITUATION; PT STATED HE COULDN'T BREATHE. PT HAD PULLED AT LINES AND OXYGEN; O2 NOT IN PLACE UPON ENTERING ROOM AND HEART MONITOR LEADS WERE NOT READING CORRECTLY. PLACED NC BACK IN NARES AND INCREASED OXYGEN FROM 2L TO 8L WITH BIOX NOT READING ACCURATELY D/T POOR PLETH. REPLACED CARDIAC LEADS WELL. PT MAKING STATEMENTS THAT HE WAS "DONE" AND TO JUST LET HIM GO. PT WAS ABLE TO TELL ME THE YEAR AND WHAT CITY HE WAS IN. CALLED JERRICA MADRID FOR ORDERS FOR AN ABG. IN THE MEANTIME, PLACED PT ON BIPAP AT 15/8 WITH FIO2 65%. THIS IMMEDIATELY RELAXED PT WHERE HE WASN'T RESTLESS ANYMORE AND ABLE TO FOLLOW COMMANDS MORE APPROPRIATELY. ABG OBTAINED APPROXIMATELY 20 MINUTES AFTER PT HAD BEEN ON THE BIPAP WITH NO CRITICAL RESULTS. FIO2 DECREASED TO 50% AFTER ABG RESULTED D/T HIGH PO2. REASSESSMENT PT REMAINED ON BIPAP WITH NO PROBLEMS. UPON PERFORMING SHIFT ASSESSMENT PT QUESTIONED WHY WE SAVED HIM. STATED HE WAS SO CLOSE TO DYING. TOLD PT THAT UPON ADMIT TO THE HOSPITAL HIS WISHES WERE TO BE A FULL CODE AND INFORMED HIM OF WHAT THAT ENTAILED. EXPLAINED TO PT IF HE WANTED TO CHANGE HIS CODE STATUS TO DNR WE COULD HAVE THE PHYSICIAN DISCUSS THAT WITH HIM. PT NODDED AND STATED THAT IS WHAT HE WISHES. CALLED JERRICA MADRID TO NOTIFY OF PT'S WISHES.
--- NOTE | 2020-01-21 23:09 | NUR ---
REASSESSMENT PT REMAINS ON BIPAP; 29/05 WITH FIO2 50%. BIOX LOW TO MID 90'S. PT REMAINS IN AFIB WITH HR 90-120'S WHILE SLEEPING. BP'S STABLE; SEE FLOWSHEET. REPOSITIONING EVERY TWO HOURS D/T PT BEING MORBIDLY OBESE AND LIMITED WITH BED MOBILITY. CALL LIGHT WITHIN REACH; PT ABLE TO MAKE NEEDS KNOWN.
[2020-01-22 03:57] LABS: BASOPHILS ABSOLUTE AUTO 0.04 K/mm3 (0.00-0.23); BASOPHILS PERCENT AUTO 0 % (0-2); EOSINOPHILS ABSOLUTE AUTO 0.02 K/mm3 (0.00-0.68); EOSINOPHILS PERCENT AUTO 0 % (0-6); Hemoglobin 11.1 g/dL (13.5-17.5); IMMATURE GRAN PERCENT AUTO 1 % (0-1); LYMPHOCYTES ABSOLUTE AUTO 0.72 K/mm3 (0.84-5.20); LYMPHOCYTES PERCENT AUTO 5 % (21-46); MONOCYTES PERCENT AUTO 6 % (4-13); Mean Corpuscular HGB 31.2 pg (26.0-34.0); Mean Corpuscular HGB Conc 31.7 g/dL (31.5-36.5); Mean Corpuscular Volume 98 fL (80-100); Mean Platelet Volume 11.2 fL (9.1-12.4); NEUTROPHILS ABSOLUTE AUTO 13.73 K/mm3 (1.96-9.15); NEUTROPHILS PERCENT AUTO 88 % (41-73); Platelet Count 214 K/mm3 (150-400); RDW Coefficient Variation 17.8 % (11.7-14.2); RDW Standard Deviation 63.7 fL (35.1-46.3); Red Blood Cell Count 3.56 M/mm3 (4.30-5.90); White Blood Cell Count 15.61 K/mm3 (4.00-11.30)
--- NOTE | 2020-01-22 04:05 | NUR ---
REASSESSMENT PT CHANGED BACK TO 3L OXYGEN VIA NC; BIOX 97%. PT VERBALIZED HOW GOOD HE FEELS. SHOWED GRATITUDE FOR "SAVING HIS LIFE". REAPPROACHED CODE STATUS CONVERSATION WITH PT AGAIN HE IS MORE ALERT, RELAXED, AND OF SOUND MIND. PT STILL WANTS TO DISCUSS DNR STATUS WITH PHYSICIAN TODAY. REACHED OUT TO [facility] IN REGARDS TO GETTING PT'S BELONGINGS HE IS ADAMANT ABOUT HIS CELL PHONE AND RETRIEVING CONTACTS TO UPDATE FAMILY MEMBERS REGARDING HIS SITUATION. AGAIN PT WAS VERY PLEASANT AND GRATEFUL OF CARES. CALL LIGHT WITHIN REACH; ABLE TO MAKE NEEDS KNOWN.
[2020-01-22 04:19] LABS: Albumin, Blood 2.1 g/dL (3.4-5.0); Albumin/Globulin Ratio 0.5 (0.8-1.8); Bilirubin, Total 2.4 mg/dL (0.1-1.0); Calcium, Blood 9.7 mg/dL (8.5-10.1); Creatinine, Blood 2.23 mg/dL (0.60-1.20); Globulin, Blood 4.6 g/dL (2.2-4.0); Potassium, Blood 4.4 mmol/L (3.5-5.5); Total Protein, Blood 6.7 g/dL (6.4-8.2)
--- NOTE | 2020-01-22 06:23 | NUR ---
END OF SHIFT SUMMARY PT REMAINED ON BIPAP MAJORITY OF THE NIGHT. PLACED ON 3L OXYGEN VIA NC FOR APPROXIMATELY TWO HOURS. DURING TURNING AT 0600 PT STATED HE FELT A LITTLE CONFUSED AND SOB; PLACED BACK ON THE BIPAP 15/8; FIO2 50%. BIOX 100%. ONLY GOOD PLETH I' AM ABLE TO OBTAIN IS BY PLACING THE PROBE ON THE PT'S FOREHEAD. HOWEVER, HE ONLY TOLERATES THIS FOR SHORT PERIODS OF TIME D/T THE PRESSURE IT CREATES. THEREFORE, PERFORMING RANDOM CHECKS T/O NIGHT TO ASSESS OXYGEN SATURATIONS. PT HAS BEEN IN AFIB WITH HR 90-LOW 100'S WHILE SLEEPING AND HIGH 130'S WHILE AWAKE AND EXERTING SELF. BP'S STABLE T/O SHIFT; SEE FLOWSHEET. PT CONTINUES TO MAKE COMMENTS THAT HE BELIEVES HE HAS HAD A BM; HOWEVER, EVERY TIME HE IS CHECKED HE IS CLEAN AND DRY. GORDON CATH REMAINS PATENT AND DRAINING DARK YELLOW URINE WITH SEDIMENT TO GRAVITY. BLE'S REMAIN EDEMATOUS AND WEEPING. DRESSING TO LEFT HEEL IS CDI; ALL OTHER VENOUS ULCERS/ABRASIONS ARE LEFT SEPIDEH D/T NO DRAINAGE AND SCABS BEGINNING TO FORM. CALL LIGHT WITHIN REACH; PT IS ABLE TO MAKE NEEDS KNOWN. WILL CONTINUE TO MONITOR UNTIL REPORT IS HANDED OFF TO ONCOMING RN.
--- NOTE | 2020-01-22 08:30 | NUR ---
PT AWAKE, A&OX4. MARKETING [employer] REP HERE TO DO ECHOCARDIOGRAM, REPOSITIONED FOR TEST WITH LIFT, TOLERATED WELL. REQUESTING FOR SOMETHING TO DRINK, THIRSTY. OFF BIPAP AND O2 2L/NC IN PLACE. GENERALIZED WEAKNESS WITH SOME TREMBLING NOTED TO UPPER EXT'S WITH MOVEMENT ONLY. VSS.
[2020-01-22 09:02] LABS: Vancomycin, Random 16.9 ug/mL
--- NOTE | 2020-01-22 10:14 | NUR ---
Echocardiogram with Definity contrast completed by Christina Hess RDCS.
--- NOTE | 2020-01-22 16:14 | NUR ---
review of pt resent his nasal swab. He remains full code at this time will follow up and try to get him to do an advance directive.
--- NOTE | 2020-01-22 17:36 | NUR ---
SHIFT SUMMARY A&OX4, REMAINS BEDREST WITH 1 PERSON MININMAL REPOSITIONING, ASSISTS STAFF. HAS BEEN VERY CONCERNED ABOUT GLASSES AND CELL PHONE. SPOKE WITH THE FRIEND, AD AND WILL DELIVER ITEMS TOMORROW, SUNDAY AFTER HE GETS OFF WORK. PT UPDATED WITH THE INFORMATION. HAS REMAINED OFF BIPAP FOR MOST OF DAY AND PLACED BACK ON THIS AFTERNOON. PT WAS ABLE TO TALK WITH FAMILY ON PHONE. VSS, HR 100-120'S. O2 2L/NC WITH SATS >90%. OCCASIONAL SOB WITH EXERTION NOTED, LUNGS WITH UPPER EXT WHEEZE AND OCCASIONAL MOIST LOOSE DYNAMITE PACKING MACHINE FEEDER COUGH. VERY EDEMATOUS TO BILATERAL LE'S WITH MININAL WEEPING NOTED. DRESSING CHANGE TO LEFT HEEL. LOW GRADE TEMP NOTED THIS AFTERNOON, 99.1. GORDON PATENT WITH DARK DARION COLOR. VERY POOR APPETITE, REFUSING TO EAT SOLID FOODS, ONLY WANTS TO DRINK. NO BOWEL MOVEMENT TODAY, ONLY FLATUS. STARTING SENNOKOT PER ORDERS. ECHO DONE THIS AM. PT SPOKE WITH DR MARTINES TODAY REGARDING CODE STATUS AND THEY CAME TO AGREEMENT TO REMAIN FULL CODE. NO OTHER CHANGES, WILL REPORT OFF TO NOC SHIFT.
--- NOTE | 2020-01-22 21:00 | NUR ---
ASSUMED PT CARE FROM NNEKA FENG PT RESTING IN BED; AWAKENS EASILY. ALERT AND ORIENTED AND ABLE TO MAKE NEEDS KNOWN WITH FORGETFULNESS NOTED. PT IS VERY PLEASANT AND COOPERATIVE WITH CARES. BIPAP IN PLACE; 29/05; FIO2 40%. PT AFIB WITH RVR; HR 110'S-140'S. BP'S ON THE SOFTER SIDE, BUT STABLE; SEE FLOWSHEET. GORDON CATH IS PATENT AND DRAINING DARK, YELLOW URINE WITH SEDIMENT. CALL LIGHT WITHIN REACH AND PT IS ABLE TO MAKE HIS NEEDS KNOWN.
[2020-01-23 03:34] LABS: BASOPHILS ABSOLUTE AUTO 0.04 K/mm3 (0.00-0.23); BASOPHILS PERCENT AUTO 0 % (0-2); EOSINOPHILS ABSOLUTE AUTO 0.18 K/mm3 (0.00-0.68); EOSINOPHILS PERCENT AUTO 2 % (0-6); Hematocrit 32.6 % (37.0-53.0); Hemoglobin 10.4 g/dL (13.5-17.5); IMMATURE GRAN ABSOLUTE AUTO 0.11 K/mm3 (0.00-0.10); IMMATURE GRAN PERCENT AUTO 1 % (0-1); LYMPHOCYTES ABSOLUTE AUTO 0.65 K/mm3 (0.84-5.20); LYMPHOCYTES PERCENT AUTO 5 % (21-46); MONOCYTES ABSOLUTE AUTO 1.05 K/mm3 (0.16-1.47); MONOCYTES PERCENT AUTO 9 % (4-13); Mean Corpuscular HGB 31.2 pg (26.0-34.0); Mean Corpuscular HGB Conc 31.9 g/dL (31.5-36.5); Mean Corpuscular Volume 98 fL (80-100); Mean Platelet Volume 10.9 fL (9.1-12.4); NEUTROPHILS ABSOLUTE AUTO 10.19 K/mm3 (1.96-9.15); NEUTROPHILS PERCENT AUTO 83 % (41-73); NRBC ABSOLUTE 0.02 K/mm3 (0.00-0.02); NRBC Auto 0.2 /100 WBC (0.0-0.2); Platelet Count 170 K/mm3 (150-400); RDW Coefficient Variation 17.8 % (11.7-14.2); Red Blood Cell Count 3.33 M/mm3 (4.30-5.90); White Blood Cell Count 12.22 K/mm3 (4.00-11.30)
[2020-01-23 03:55] LABS: Anion Gap 8 mmol/L (6-16); Blood Urea Nitrogen 63 mg/dL (8-24); Bun/Creatinine Ratio 30.9 (12.0-20.0); CO2, Blood 29 mmol/L (21-32); Calcium, Blood 9.1 mg/dL (8.5-10.1); Chloride, Blood 101 mmol/L (98-108); Creatinine, Blood 2.04 mg/dL (0.60-1.20); Glomerular Filtration Rate 35 (60-); Glucose, Blood 134 mg/dL (70-99); Potassium, Blood 3.7 mmol/L (3.5-5.5); Sodium, Blood 138 mmol/L (136-145); Vancomycin, Random 27.1 ug/mL
--- NOTE | 2020-01-23 05:46 | NUR ---
END OF SHIFT SUMMARY PT HAS SLEPT MOST OF NIGHT WITH BIPAP IN PLACE. WASN'T TOLERATING PRESSURES 15/8; THEREFORE, RT CALLED TO ADJUST SETTINGS TO 13/8. FIO2 INCREASED FROM 40 TO 50% D/T LOW OXYGEN SATURATION READINGS. PT HAS VERY POOR PERFUSION MAKING IT DIFFICULT TO OBTAIN ADEQUATE BIOX READING. CURRENTLY PROBE IS TAPED TO FOREHEAD WITH A READING OF 95-98%. LUNG SOUNDS ARE REMAINED CLEAR TO BILATERAL UPPER LOBES AND DIMINISHED TO BILATERAL LOWER LOBES. PT HAS A STRONG, DRY, NON-PRODUCTIVE COUGH. SWITCHED TO 4L OXYGEN VIA NC FOR BIPAP BREAKS IN WHICH PT TOLERATES WELL. HE STATED EARLIER ON IN THE SHIFT THAT HE FELT HE WAS IN AN ALTERNATE UNIVERSE AND WAS HAVING SOME CONFUSION. PT WASN'T IN ANY RESPIRATORY DISTRESS AND WAS WEARING THE BIPAP PRIOR TO THAT STATEMENT. INFORMED PT THAT HE HADN'T REALLY SLEPT IN THE LAST COUPLE OF DAYS AND WAS MOST LIKELY BECOMING DELIRIOUS. PT REQUESTED HIS TRAMADOL; CALLED HOSPITALISTS FOR ORDERS AND ADMINISTERED 50MG PER DR. SOW. PT SLEPT SOUNDLY, BUT WAS EASILY AROUSABLE. AFIB WITH RVR AND PVC'S; HR LABILE FROM 120'S-150'S. HOWEVER, NOT SUSTAINABLE IN THE 150'S. NONETHELESS, BP'S ON THE SOFTER SIDE; THEREFORE, DID NOT ADMINISTER IV LOPRESSOR PER ORDERS. PT REMAINS EDEMATOUS AND WEEPING TO BLE'S. LINEN CHANGED THIS MORNING AND PT REPOSITIONED SUPINE WITH HOB IN HIGH FOWLERS. PT DOESN'T TOLERATE LYING FLAT FOR LONG PERIODS OF TIME D/T GETTING SOB. PT ABLE TO HELP ASSIST WITH REPOSITIONING; HOWEVER, CEILING LIFT USED TO CHANGE LINEN AND BOOST PT IN BED. DRESSING TO LEFT HEEL REMAINS CDI; SKIN CARE PERFORMED TO DRY, SCALY SKIN TO BILATERAL FEET. GORDON CATH PATENT AND DRAINED 500CC OF DARK, YELLOW URINE WITH SEDIMENT. PT STATED HE LIKES TO LISTEN TO MUSIC AND REQUESTED A STEREO/RADIO AT BEDSIDE. STATES JOURNEY IS IS FAVORITE TO LISTEN TO. CALLED [facility] TO SEE IF THEY COULD ASSIST WITH THIS NEED. CALL LIGHT LEFT WITHIN REACH; PT ABLE TO MAKE HIS NEEDS KNOWN. WILL CONTINUE TO MONITOR UNTIL REPORT IS HANDED OFF TO ONCOMING RN.
--- NOTE | 2020-01-23 12:21 | NUR ---
REASSESSMENT: A&O X 3, PLEASANT, A LITTLE WITHDRAWN. DISCUSSED CODE STATUS AT LENGTH, CLARIFIED DEFINITIONS, AND ANSWERED ALL QUESTIONS. HE SPENT THE MORNING TALKING ON HIS PHONE WITH FRIENDS. C/O PAIN IN BACK AND RLE; GAVE TYLENOL WITH ADEQUATE RELIEF. ON O2 @ 5 L/MIN NC, DE-SATS TO HIGH 70'S-LOW 80'S WHILE TALKING; WAS EDUCATED TO STOP TALKING PERIODICALLY AND TAKE SOME SLOW DEEP BREATHS. BLE WITH WEEPING EDEMA, DRESSING ON L HEEL. WEARING BIPAP PRN FOR SOB. LUNG SOUNDS ARE DIM THROUGHOUT, PRODUCING THICK BECERRA SPUTUM.
--- NOTE | 2020-01-23 18:27 | NUR ---
SHIFT SUMMARY: A&O X 3, FATIGUED AT THIS TIME. HAS SPENT MUCH TIME ON THE PHONE TODAY DESPITE EDUCATION FROM NURSING TO TAKE BREAKS AND BREATHE. PLACED ON OXYMIZER AT 5 L/MIN FOR COMFORT; DIFFICULT TO GET GOOD WAVE FORM, FINGERS CYANOTIC, USING EAR PROBE. OCC PROD COUGH, BECERRA SPUTUM. PLACED BACK ON BIPAP AT 1745 AFTER HE FINISHED DINNER. HR VARIABLE FROM 110-150'S DEPENDING ON ACTIVITY. LUNG SOUNDS DIM THROUGHOUT. NUMEROUS SCABS ON BILATERAL UPPER AND LOWER EXTREMITIES. C/O PAIN IN RLE AND BACK, DECLINED OFFERED PAIN MEDS. POSSIBLE STATUS CHANGE TOMORROW.
--- NOTE | 2020-01-23 20:45 | NUR ---
PT ON BIPAP, REMOVED AND PLACED ON 5L OXYMIZER FOR ORAL CARE AND PO MEDS. A&O X4, REQUESTING FOR A DRINK OF WATER, SIPPY CUP GIVEN. HR A-FIB WITH INCREASE RATE 120-130'S WITH BIPAP OFF. DENIES SOB. PO MEDS GIVEN WITH APPLE SAUCE, TOLERATED WELL. PM/MCKENNA CARE DONE. WILL PUT BIPAP BACK ON DURING NOC SHIFT. CONTINUE TO MONITOR AND TX PRN.
--- NOTE | 2020-01-23 22:39 | NUR ---
PT REQUESTED FOR BIPAP BREAK. O2 5L OXYMIZER PLACED. FRESH ICE WATER GIVEN. BED CONTROLS AT BEDSIDE AND ADJUSTING BED TO HIS COMFORT. HR 100'S WITH GOOD RATE CONTROL WITH METOPROLOL 5MG IVP.
--- NOTE | 2020-01-24 01:12 | NUR ---
SLEEPING/RESTING COMFORTABLE. BIPAP PLACED BACK ON WITH SATS 98%, DECREASED FIO2 45%. CONTINUE TO MONITOR.
[2020-01-24 03:25] LABS: BASOPHILS ABSOLUTE AUTO 0.03 K/mm3 (0.00-0.23); BASOPHILS PERCENT AUTO 0 % (0-2); EOSINOPHILS ABSOLUTE AUTO 0.34 K/mm3 (0.00-0.68); EOSINOPHILS PERCENT AUTO 3 % (0-6); Hematocrit 34.1 % (37.0-53.0); Hemoglobin 10.8 g/dL (13.5-17.5); IMMATURE GRAN ABSOLUTE AUTO 0.12 K/mm3 (0.00-0.10); IMMATURE GRAN PERCENT AUTO 1 % (0-1); LYMPHOCYTES ABSOLUTE AUTO 0.71 K/mm3 (0.84-5.20); LYMPHOCYTES PERCENT AUTO 7 % (21-46); MONOCYTES ABSOLUTE AUTO 1.01 K/mm3 (0.16-1.47); MONOCYTES PERCENT AUTO 10 % (4-13); Mean Corpuscular HGB 30.6 pg (26.0-34.0); Mean Corpuscular HGB Conc 31.7 g/dL (31.5-36.5); Mean Corpuscular Volume 97 fL (80-100); Mean Platelet Volume 11.3 fL (9.1-12.4); NEUTROPHILS ABSOLUTE AUTO 8.09 K/mm3 (1.96-9.15); NEUTROPHILS PERCENT AUTO 79 % (41-73); NRBC ABSOLUTE 0.03 K/mm3 (0.00-0.02); NRBC Auto 0.3 /100 WBC (0.0-0.2); Platelet Count 194 K/mm3 (150-400); RDW Coefficient Variation 17.8 % (11.7-14.2); RDW Standard Deviation 61.1 fL (35.1-46.3); Red Blood Cell Count 3.53 M/mm3 (4.30-5.90)
[2020-01-24 03:27] LABS: Base Excess Venous 5.2 mmol/L; Bicarbonate Venous 28.2 mmol/L (24.0-30.0); PO2 Venous 50.5 mmHg (38-42); pH Blood Venous 7.42 (7.34-7.37)
--- NOTE | 2020-01-24 03:30 | NUR ---
PT SLEEPING/RESTING QUIETLY. PLACED BIPAP BACK ON AND TITRATED FIO2 DOWN 45% DUE TO SATS 98% WITH FIO2 50%. CONTINUE TO MONITOR.
[2020-01-24 03:44] LABS: Alanine Aminotransfer (ALT/SGP 17 U/L (12-78); Albumin/Globulin Ratio 0.4 (0.8-1.8); Alk Phos 114 U/L (50-136); Anion Gap 7 mmol/L (6-16); Aspartate Aminotrans (AST/SGOT 28 U/L (12-37); Bilirubin, Total 1.9 mg/dL (0.1-1.0); Blood Urea Nitrogen 61 mg/dL (8-24); Bun/Creatinine Ratio 33.5 (12.0-20.0); CO2, Blood 29 mmol/L (21-32); Calcium, Blood 9.6 mg/dL (8.5-10.1); Chloride, Blood 102 mmol/L (98-108); Creatinine, Blood 1.82 mg/dL (0.60-1.20); Globulin, Blood 4.8 g/dL (2.2-4.0); Glomerular Filtration Rate 40 (60-); Glucose, Blood 131 mg/dL (70-99); Potassium, Blood 3.8 mmol/L (3.5-5.5); Sodium, Blood 138 mmol/L (136-145); Total Protein, Blood 6.8 g/dL (6.4-8.2)
--- NOTE | 2020-01-24 05:56 | NUR ---
SHIFT SUMMARY PT AWAKES AT 0500 THIS AM, REQUESTING BIPAP OFF. 02 5L/OXYMIZER PLACED WITH SATS >90%. SLEEP WELL T/O NIGHT WITH SOME BREAKS OFF BIPAP. LOOSE MOIST PRODUCTIVE COUGH, THICK BECERRA SPUTUM NOTED ON TISSUE. C/O LOW BACK PAIN, TYLENOL GIVEN PER ORDERS. NEW 20G IV SITE PLACED, PATENT. TALKING ON PHONE TO FRIEND THIS AM. NO OTHER CHANGES NOTED, WILL REPORT OFF TO DAY SHIFT.
--- NOTE | 2020-01-24 12:30 | NUR ---
DR. MARTINES AT BEDSIDE FOR ASSESSMENT. THIS AUTHOR DISCUSSED PT'S PERSISTENT AFIB WITH RVR, HR SUSTAINED IN 130'S WITH OCC BRIEF INCREASES TO 150. SUGGESTED ADDING ANTI-ARRYTHMIC; PROVIDER DECLINED, CITING HYPOTENSION. ONLY OPTION WOULD BE DIGOXIN, WHICH IS NOT OPTIMAL GIVEN PT'S CKD. METOPROLOL CHANGED FROM 1/2 TAB OF LONG ACTING TO TARTRATE, POSSIBLY BETTER RATE CONTROL. IV LABETOLOL D/C'D.
--- NOTE | 2020-01-24 19:00 | NUR ---
ASSUMED CARE ASSUMED CARE OF PATIENT. AWAKE AND ALERT. ORIENTED AND COOPERATIVE. SPEECH IS SLIGHTLY MUMBLED AND PT IS VERY SOFT SPOKEN. MOVES ALL EXTREMITIES WEAKLY. DECREASED FINE MOTOR SKILLS NOTED- PT STATES THIS IS NOT NEW. MONITOR SHOWS AFIB, RATE 100-130s. PT IS ON BIPAP AT THIS TIME. SATS STABLE. NO URINE VOID SINCE EVAN WAS DC'D EARLIER. SEE SHIFT ASSESSMENT FOR FULL ASSESSMENT.
--- NOTE | 2020-01-24 19:25 | NUR ---
SHIFT SUMMARY: CHANGED TO PCU STATUS. A&O X 3, NEEDY. HR SUSTAINED IN 120-140 RANGE, WILL BRIEFLY GO INTO 150'S WITH ACTIVITY. HYPOTENSIVE AT TIMES, 80-100/50'S. LUNG SOUNDS DIMINISHED THROUGHOUT, O2 @ 5 L/MIN OXYMIZER AND BIPAP PRN AND WHEN SLEEPING. GORDON DISCONTINUED, CAN USE URINAL WITH ASSISTANCE. HAD LARGE BM TODAY. FINGERS AND FEET CYANOTIC. SCATTERED SCABS ON BLE, WOUND ON L HEEL, RASH IN SKIN FOLDS AND UNDER R BREAST; NYSTATIN CREAM ORDERED. PT SPENDS MOST OF THE DAY TALKING ON HIS CELL PHONE, NEEDS FREQUENT REMINDERS TO TAKE A BREAK AND BREATHE. DID NOT NEED PAIN MEDS TODAY. SAT UP IN CHAIR FOR COUPLE OF HOURS TODAY. POOR APPETITE, WILL DRINK GLUCERNA AND WATER.
--- NOTE | 2020-01-25 03:35 | NUR ---
ANXIETY PT C/O FEELING ANXIOUS AND RESTLESS. STATES "I DON'T KNOW WHY I'M FEELING THIS WAY. MY MEDS USUALLY GET ME THROUGH THE NIGHT." REQUESTING SOMETHING TO HELP HIM RELAX. CALL TO DR. CRUZ- NEW ORDER RECEIVED FOR XANAX 0.5MG PO X 1 DOSE.
[2020-01-25 04:12] LABS: BASOPHILS ABSOLUTE AUTO 0.04 K/mm3 (0.00-0.23); BASOPHILS PERCENT AUTO 0 % (0-2); EOSINOPHILS ABSOLUTE AUTO 0.34 K/mm3 (0.00-0.68); EOSINOPHILS PERCENT AUTO 4 % (0-6); Hematocrit 33.8 % (37.0-53.0); Hemoglobin 10.8 g/dL (13.5-17.5); IMMATURE GRAN ABSOLUTE AUTO 0.17 K/mm3 (0.00-0.10); IMMATURE GRAN PERCENT AUTO 2 % (0-1); LYMPHOCYTES ABSOLUTE AUTO 0.88 K/mm3 (0.84-5.20); LYMPHOCYTES PERCENT AUTO 10 % (21-46); MONOCYTES ABSOLUTE AUTO 0.83 K/mm3 (0.16-1.47); MONOCYTES PERCENT AUTO 9 % (4-13); Mean Corpuscular HGB 30.9 pg (26.0-34.0); Mean Corpuscular Volume 97 fL (80-100); Mean Platelet Volume 11.6 fL (9.1-12.4); NEUTROPHILS ABSOLUTE AUTO 6.64 K/mm3 (1.96-9.15); NEUTROPHILS PERCENT AUTO 75 % (41-73); NRBC ABSOLUTE 0.04 K/mm3 (0.00-0.02); NRBC Auto 0.4 /100 WBC (0.0-0.2); Platelet Count 176 K/mm3 (150-400); RDW Coefficient Variation 17.6 % (11.7-14.2); RDW Standard Deviation 60.8 fL (35.1-46.3); Red Blood Cell Count 3.49 M/mm3 (4.30-5.90)
[2020-01-25 04:33] LABS: Anion Gap 7 mmol/L (6-16); Blood Urea Nitrogen 60 mg/dL (8-24); Bun/Creatinine Ratio 34.7 (12.0-20.0); CO2, Blood 30 mmol/L (21-32); Calcium, Blood 9.4 mg/dL (8.5-10.1); Chloride, Blood 102 mmol/L (98-108); Creatinine, Blood 1.73 mg/dL (0.60-1.20); Glomerular Filtration Rate 42 (60-); Glucose, Blood 123 mg/dL (70-99); Sodium, Blood 139 mmol/L (136-145)
--- NOTE | 2020-01-25 06:45 | NUR ---
SHIFT SUMMARY NO ACUTE CHANGES. SLEPT INTERMITTENTLY WHEN UNDISTURBED. USED BIPAP FOR SHORT PERIODS DURING NOC, OTHERWISE PT WAS ON 5L NC. MILD DYSPNEA NOTED WITH EXERTION. RESPIRATIONS EVEN AND UNLABORED. SATS STABLE. MONITOR SHOWS AFIB, RATE 80s-120s. BP STABLE. AFEBRILE. VOIDING SMALL AMOUNTS OF YELLOW URINE. INCONTINENT OF MEDIUM SIZED SOFT, PASTY BROWN STOOL. TOLERATING DIET. NO CHANGE IN SKIN INTEGRITY FROM PREVIOUS ASSESSMENT. MEDICATED WITH XANAX 0.5MG PO X 1 DOSE FOR C/O ANXIETY WITH GOOD RELIEF. WILL REPORT TO DAY SHIFT RN WHEN AVAILABLE.
[2020-01-25 10:40] LABS: International Normalized Ratio 1.65; Prothrombin Time Results 17.2 Sec (9.7-11.5)
--- NOTE | 2020-01-25 11:37 | NUR ---
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 REPORT GIVEN TO Mavis KAUFMAN RN.
--- NOTE | 2020-01-25 11:55 | NUR ---
ASSUMED CARE: PT TRANSFERRED TO ROOM PCU 10 VIA BERIATRIC BED. REPORT RECIEVED FROM SIMI EARLY. PT WEARING 3L O2 SATTING MID 90S. LUNG SOUNDS DIMINISHED. VARIOUS SCABS AND BRUISES NOTED. LINENS CHANGED, SMEAR BM NOTED. DR MONTANEZ AT BEDSIDE TO DO ASSESSMENT. NO FURTHER NEEDS OR CONCERNS AT THIS TIME.
--- NOTE | 2020-01-25 17:56 | NUR ---
SHIFT SUMMARY: PT TRANSFERRED FROM ICU. BIPAP AT BEDSIDE BUT ENCOURAGING PT TO ONLY USE IT WITH SLEEP. 3L O2 VIA NC WHILE AWAKE. PT SPOKE WITH HIS SISTERS AND GAVE THEM AN UPDATE. PLAN IS TO GO BACK TO SNF, POSSIBLY WITH HOSPICE. NO FURTHER NEEDS OR CONCERNS AT THIS TIME.
[2020-01-26 04:22] LABS: International Normalized Ratio 1.7; Prothrombin Time Results 17.7 Sec (9.7-11.5)
[2020-01-26 04:27] LABS: Albumin, Blood 2.1 g/dL (3.4-5.0); Anion Gap 6 mmol/L (6-16); Blood Urea Nitrogen 57 mg/dL (8-24); Bun/Creatinine Ratio 35.2 (12.0-20.0); CO2, Blood 29 mmol/L (21-32); Calcium, Blood 9.5 mg/dL (8.5-10.1); Chloride, Blood 104 mmol/L (98-108); Creatinine, Blood 1.62 mg/dL (0.60-1.20); Glomerular Filtration Rate 46 (60-); Glucose, Blood 110 mg/dL (70-99); Phosphorus, Blood 3.2 mg/dL (2.5-4.9); Sodium, Blood 139 mmol/L (136-145); Vancomycin, Random 23.9 ug/mL
[2020-01-26 05:11] LABS: PCO2 Arterial 45.4 mmHg (35-45); PO2 Arterial 124 mmHg (80-100); pH Blood Arterial 7.41 (7.35-7.45)
--- NOTE | 2020-01-26 05:21 | NUR ---
SHIFT SUMMARY PATIENT ON BIPAP FOR ALL BUT 30-40 MINS LAST NIGHT. HE SLEPT FOR MOST OF THE NIGHT. TURNED OR REPOSITIONED EVERY 2 HOURS, PATIENT ALWAYS MANAGED TO TURN BACK ON TO HIS RIGHT SIDE AND DIAGONAL IN THE BED. HE IS ALERT AND COOPERATIVE WITH CARE, HE IS ALSO VERY WEAK AND UNABLE TO HELP TURN OR REPOSITION. HE WAS ABLE TO LIFT HIS BUTTOCKS TO ASSIST WITH BEDPAN PLACEMENT. HE HAS A MOIST COUGH, WITH COARSE BS T/O. NO ACUTE CHANGES THIS SHIFT. CALL LIGHT IN REACH, BED IN LOWEST POSTITION.
--- NOTE | 2020-01-26 07:35 | NUR ---
ASSUMED CARE: PT RESTING IN BED, BIPAP IN PLACE AT 13/8 WITH 30% FIO2. RT AT BEDSIDE. NO FURTHER NEEDS OR CONCERNS AT THIS TIME.
--- NOTE | 2020-01-26 11:58 | NUR ---
DR MONTANEZ CAME TO SEE PT AND ASKING ABOUT PT'S HOME CPAP. PT INFORMED HER THAT HE GOT RID OF IT. CALL TO [facility] AND STAFF STATES THAT PT TOLD THEM HE GOT RID OF IT. HE DOES NOT HAVE A DEVICE THERE, NOR HAS HE HAD ONE SINCE HE HAS BEEN THERE. INFORMED DR MONTANEZ AND CALLED RT TO RESEARCH WHAT HIS PRIOR DEVICE AND SETTINGS WERE SO WE CAN GET HIM SET UP WITH ONE PRIOR TO DC. DC PLANNING AWARE OF THIS. TABLE OPERATOR AWARE THAT DR MONTANEZ WANTS POWER GLIDE PLACED PRIOR TO DC FOR 1 WEEK OF ANTIBIOTICS.
--- NOTE | 2020-01-26 14:51 | NUR ---
PT DEVICE CHECK PER HOSPITALIST ORDER, DEVICE PROGRAMMED VVI WITH LOWER RATE AT 40 BPM. DEVICE WORKING NORMALLY, LEFT PRINTOUT ON FRONT OF CHART AND ROUTED REPORT TO DR STRINGER IN [facility]
--- NOTE | 2020-01-26 15:24 | NUR ---
SPOKE WITH DR MONTANEZ REGARDING HER DC ORDER OF BIPAP. STATES THAT SHE WAS UNDER THE IMPRESSION THAT PT USED CPAP AND WE NEEDED TO FIND OUT IF HE STILL HAS AN ACTIVE CPAP ORDER FROM [facility] AND IF HE CAN GET A NEW MACHINE. DISCUSSED WITH RT WHO SPOKE WITH CELESTINA. CELESTINA STATES HE HAS AN ACTIVE BIPAP ORDER AND THAT THEY WILL SEND HIM A NEW MACHINE TO THE HOSPITAL IF THEY GET A DOCTOR FACE TO FACE ORDER WITH THE RECOMMENDATIONS. RT TAKING THIS INFORMATION TO DC PLANNING TO SORT OUT PAPERWORK
--- NOTE | 2020-01-26 18:48 | NUR ---
SHIFT SUMMARY: PT WORKED WITH PT/OT TODAY. HAD TO SET LIMITS ON BIPAP USE BECAUSE PT WANTS TO WEAR ALL DAY AND NEEDS TO TRANSITION TO EQUIVALENT TO HOME USE. RT AND DC PLANNING WORKING WITH [employer] TO GET PT A HOME BIPAP. PLAN IS FOR SNF DC IN NEXT FEW DAYS.
[2020-01-27 04:13] LABS: International Normalized Ratio 2.11; Prothrombin Time Results 21.6 Sec (9.7-11.5)
[2020-01-27 04:15] LABS: Vancomycin, Random 17.1 ug/mL
[2020-01-27 05:04] LABS: PCO2 Arterial 44.8 mmHg (35-45); PO2 Arterial 89.5 mmHg (80-100); pH Blood Arterial 7.42 (7.35-7.45)
--- NOTE | 2020-01-27 05:12 | NUR ---
SHIFT SUMARY PT SLEEPING IN ROOM COMFORTABLY AT THIS TIME. NO ACUTE CHANGES IN STATUS T/O NIGHT. PT SLEPT WELL AFTER REPOSITIONING. RESP EVEN UNLABORED ON 3L NC W/ SATS >92%. PT DID NOT USE BIPAP DURING NIGHT TO ASSESS ABG IN AM. DENIED ANY CP T/O NIGHT. NO OTHER CHANGES IN STATUS. PT DID NOT HAVE BM. USED URINAL TWICE W/ ASSIST. CALL LIGHT IN REACH.
[2020-01-27] MEDS ORDERED: ACET325 PO (13:48)
[2020-01-27] MEDS ORDERED: ALBU90OI INH (13:49)
[2020-01-27] MEDS ORDERED: HUMALOG KW200 UNIT/1 SC (13:51)
[2020-01-27] MEDS ORDERED: VISBIOME 112.51 EACH PO (13:53)
[2020-01-27] MEDS ORDERED: LOSA25 PO (13:54)
[2020-01-27] MEDS ORDERED: SENOKOT17.2 MG PO (13:55)
[2020-01-27] MEDS ORDERED: Nystatin15 GM TOP (13:55)
[2020-01-27] MEDS ORDERED: VANCOMYCIN1 GM/2001 IV (13:57)
[2020-01-27] MEDS ORDERED: TORS10 PO (14:00)
--- NOTE | 2020-01-27 16:20 | NUR ---
ATTEMPTED POWER GLIDE IN BOTH UPPER ARMS. ACCESSED VEIN'S WITHOUT PROBLEM. LINES WOULD NOT GIVE FREE FLOWING BLOOD BACK X2. PT SLEPT THROUGH ENTIRE PROCEDURE. SPOKE WITH RN THAT WAS TAKING CARE OF PT.
--- NOTE | 2020-01-27 18:31 | NUR ---
DISCHARGE SUMMARY PT A&Ox3; CALM AND COOPERATIVE WITH CARE. PT RESTING IN BED DURING SHIFT; REPOSITIONED FOR COMFORT AND PRESSURE ULCER PREVENTION. PT REPORTS PAIN TO BILATERAL HANDS; PT REPORTS DUE TO NEUROPATHY. PT SOB WITH EXERTION; ON 4-5L O2 THIS AM AFTER TRIAL WITHOUT BIPAP LAST NOC AND TITRATED TO 3L O2 VIA NC. PT DENIES CHEST PAIN, NAUSEA AND DIZZINESS T/O SHIFT. POWER GLIDE PLACED THIS EVENING. VSS. NO OTHER ACUTE CHANGES NOTED DURING SHIFT. REPORT CALLED TO [facility] TO THE NURSE ASSUMING CARE OF P; PT LEFT ROOM VIA [facility] AT 1755. PT STABLE UPON DISCHARGE.
== END 2020-01-27 18:13 | DRG 871 ==
LOC: ER 23:38 → PCU 01-19 03:29 → ICUW 01-19 03:29 → PCU 01-25 11:18
PROVIDERS: Emergency Medicine; Hospitalist; Internal Medicine; Nurse Practitioner Acute Care; Pharmacist; ADMIT Internal Medicine
PROC: 3E033XZ Introduction of Vasopressor into Peripheral Vein, Percutaneous Approach (ICD-10-PCS; principal; 2020-01-21)
PROC: 5A09357 Assistance with Respiratory Ventilation, Less than 24 Consecutive Hours, Continuous Positive Airway Pressure (ICD-10-PCS; 2020-01-21)
DX: A41.02 Sepsis due to Methicillin resistant Staphylococcus aureus (principal); J15.212 Pneumonia due to Methicillin resistant Staphylococcus aureus; J96.21 Acute and chronic respiratory failure with hypoxia; G92 Toxic encephalopathy; I13.0 Hypertensive heart and chronic kidney disease with heart failure and stage 1 through stage 4 chronic kidney disease, or unspecified chronic kidney disease; J44.0 Chronic obstructive pulmonary disease with (acute) lower respiratory infection; I48.20 Chronic atrial fibrillation, unspecified; Z68.44 Body mass index [BMI] 60.0-69.9, adult; L03.116 Cellulitis of left lower limb; L03.115 Cellulitis of right lower limb; I42.0 Dilated cardiomyopathy; I50.22 Chronic systolic (congestive) heart failure; E11.22 Type 2 diabetes mellitus with diabetic chronic kidney disease; E11.649 Type 2 diabetes mellitus with hypoglycemia without coma; N18.3 Chronic kidney disease, stage 3 (moderate); Z79.4 Long term (current) use of insulin; G47.33 Obstructive sleep apnea (adult) (pediatric); E66.01 Morbid (severe) obesity due to excess calories; Z99.81 Dependence on supplemental oxygen; Z87.891 Personal history of nicotine dependence; Z95.0 Presence of cardiac pacemaker; D63.1 Anemia in chronic kidney disease; E88.09 Other disorders of plasma-protein metabolism, not elsewhere classified; I95.9 Hypotension, unspecified; F11.10 Opioid abuse, uncomplicated; M10.9 Gout, unspecified; F32.9 Major depressive disorder, single episode, unspecified; I25.10 Atherosclerotic heart disease of native coronary artery without angina pectoris
CPT/HCPCS: 0099U; 36415; 36416; 36600; 51702; 71045; 80048; 80053; 80069; 80202; 81001; 82140; 82728; 82803; 82947; 83036; 83605; 83615; 83735; 83880; 84145; 84484; 85025; 85027; 85610; 85730; 86140; 87040; 87070; 87077; 87081; 87086; 87147; 87186; 87205; 93005; 93010; 93282; 94640; 94660; 94762; 96365; 96375; 97110; 97162; 97166; 97530; 99285-25; A9270; A9270-GY; C1751; C8929; J0692; J1644; J1956; J2543; J3370; J7030; J7040; J7042; J7050; Q9957; U0002

== ENCOUNTER → 2020-01-28 | Outpatient (CLI) | payer OTHER ==
[~2020-01-28] MED LIST changes: +ACET325 PO; +ALBU90OI INH; +Flonase 0.05% N16 GM INH; +HUMALOG KW200 UNIT/1 SC; +LIQUID PROTEIN PO; +LOSA25 PO; +Nystatin15 GM TOP; +SENOKOT17.2 MG PO; +TORS10 PO; +VANCOMYCIN1 GM/2001 IV; +VISBIOME 112.51 EACH PO
[2020-01-28 16:36] LABS: Albumin, Blood 2.2 g/dL (3.4-5.0); Anion Gap 6 mmol/L (6-16); Blood Urea Nitrogen 59 mg/dL (8-24); Bun/Creatinine Ratio 31.1 (12.0-20.0); CO2, Blood 30 mmol/L (21-32); Calcium, Blood 9.9 mg/dL (8.5-10.1); Chloride, Blood 103 mmol/L (98-108); Glomerular Filtration Rate 38 (60-); Glucose, Blood 125 mg/dL (70-99); Phosphorus, Blood 3.2 mg/dL (2.5-4.9); Potassium, Blood 3.9 mmol/L (3.5-5.5); Sodium, Blood 139 mmol/L (136-145)
[2020-01-28 16:37] LABS: Percent Saturation 18.1 % (20.0-50.0)
== END | disposition home or self-care (01) ==
LOC: LAB SHORT 15:52 → LAB 15:52
PROVIDERS: Internal Medicine Nephrology
DX: N18.3 Chronic kidney disease, stage 3 (moderate) (principal); D63.1 Anemia in chronic kidney disease; D50.9 Iron deficiency anemia, unspecified
CPT/HCPCS: 80069; 82728; 83540; 83550; 85018

== ENCOUNTER → 2020-01-29 | Outpatient (CLI) | payer OTHER ==
[2020-01-29 05:17] LABS: International Normalized Ratio 2.97; Prothrombin Time Results 29.9 Sec (9.7-11.5)
== END | disposition home or self-care (01) ==
LOC: LAB UVN 03:50 → EDSTATUS 11:22
PROVIDERS: Nurse Practitioner Primary Care
DX: I48.20 Chronic atrial fibrillation, unspecified (principal)
CPT/HCPCS: 85610

== ENCOUNTER 2020-01-30 10:08 | Emergency (ER) | payer OTHER ==
[~2020-01-30] VITALS: Ht 172.7 cm; Wt 136.5 kg
== END 2020-01-30 17:01 | disposition home or self-care (01) ==
LOC: ER 10:08
DX: A49.02 Methicillin resistant Staphylococcus aureus infection, unspecified site (principal); E11.22 Type 2 diabetes mellitus with diabetic chronic kidney disease; I50.9 Heart failure, unspecified; N18.4 Chronic kidney disease, stage 4 (severe); I25.10 Atherosclerotic heart disease of native coronary artery without angina pectoris; G47.33 Obstructive sleep apnea (adult) (pediatric); I48.91 Unspecified atrial fibrillation; Z79.2 Long term (current) use of antibiotics; Z87.891 Personal history of nicotine dependence; Z88.1 Allergy status to other antibiotic agents; Z91.040 Latex allergy status; Z79.82 Long term (current) use of aspirin; Z79.899 Other long term (current) drug therapy; Z79.4 Long term (current) use of insulin; Z79.01 Long term (current) use of anticoagulants
CPT/HCPCS: 99283; C1751; J7030

== ENCOUNTER → 2020-02-04 | Outpatient (CLI) | payer OTHER ==
[2020-02-04 16:19] LABS: Hematocrit 28.9 % (37.0-53.0); Hemoglobin 9.2 g/dL (13.5-17.5); Mean Corpuscular HGB 30.8 pg (26.0-34.0); Mean Corpuscular HGB Conc 31.8 g/dL (31.5-36.5); Mean Corpuscular Volume 97 fL (80-100); Mean Platelet Volume 12.3 fL (9.1-12.4); Platelet Count 288 K/mm3 (150-400); RDW Coefficient Variation 17.8 % (11.7-14.2); RDW Standard Deviation 61.7 fL (35.1-46.3); Red Blood Cell Count 2.99 M/mm3 (4.30-5.90); White Blood Cell Count 7.61 K/mm3 (4.00-11.30)
[2020-02-04 21:30] LABS: Albumin, Blood 1.8 g/dL (3.4-5.0); Albumin/Globulin Ratio 0.4 (0.8-1.8); Bilirubin, Total 1.5 mg/dL (0.1-1.0); Bun/Creatinine Ratio 25.4 (12.0-20.0); C-REACTIVE PROTEIN, EXT RANGE 8.13 mg/dL (0.000-0.300); Calcium, Blood 8.7 mg/dL (8.5-10.1); Creatinine, Blood 3.38 mg/dL (0.60-1.20); Globulin, Blood 4.9 g/dL (2.2-4.0); Potassium, Blood 4.6 mmol/L (3.5-5.5); Total Protein, Blood 6.7 g/dL (6.4-8.2)
== END | disposition home or self-care (01) ==
LOC: EDSTATUS 12:58 → LAB UVN 14:57
PROVIDERS: Nurse Practitioner Primary Care
DX: J15.212 Pneumonia due to Methicillin resistant Staphylococcus aureus (principal); N18.4 Chronic kidney disease, stage 4 (severe); D63.1 Anemia in chronic kidney disease; D62 Acute posthemorrhagic anemia; K92.1 Melena
CPT/HCPCS: 80053; 85027; 85651; 86140

== ENCOUNTER → 2020-02-05 | Outpatient (CLI) | payer OTHER ==
[2020-02-05 14:25] LABS: International Normalized Ratio 3.41
== END | disposition home or self-care (01) ==
LOC: LAB UVN 12:54 → EDSTATUS 13:01
PROVIDERS: Family Medicine
DX: I48.20 Chronic atrial fibrillation, unspecified (principal)
CPT/HCPCS: 85610

== ENCOUNTER → 2020-02-06 | Outpatient (CLI) | payer OTHER ==
[2020-02-06 08:13] LABS: Hematocrit 23.5 % (37.0-53.0); Hemoglobin 7.4 g/dL (13.5-17.5); Mean Corpuscular HGB 30.8 pg (26.0-34.0); Mean Corpuscular HGB Conc 31.5 g/dL (31.5-36.5); Mean Corpuscular Volume 98 fL (80-100); Mean Platelet Volume 12.2 fL (9.1-12.4); Platelet Count 276 K/mm3 (150-400); RDW Coefficient Variation 17.4 % (11.7-14.2); RDW Standard Deviation 61.8 fL (35.1-46.3); White Blood Cell Count 8.35 K/mm3 (4.00-11.30)
== END ==
LOC: LAB UVN 08:04 → EDSTATUS 09:23
DX: R78.81 Bacteremia (principal)
CPT/HCPCS: 85027

== ENCOUNTER → 2020-02-07 | Outpatient (CLI) | payer OTHER ==
[2020-02-07 19:59] LABS: International Normalized Ratio 3.36; Prothrombin Time Results 33.6 Sec (9.7-11.5)
== END | disposition home or self-care (01) ==
LOC: EDSTATUS 09:24 → LAB UVN 16:46
PROVIDERS: Family Medicine
DX: I48.20 Chronic atrial fibrillation, unspecified (principal)
CPT/HCPCS: 85610